=== PATIENT | male | born 1980 | race Caucasian/White ===

== ENCOUNTER 2020-09-11 12:01 | Emergency (ER) | payer OTHER, SELFPAY ==
[2020-09-11 12:15] VITALS: BP 143/100; PULSE 80; RESP 17; TEMP 37.2; O2SAT 96; BMI 29.9
--- NOTE | 2020-09-11 12:30 | XR_ITS ---
EXAMINATION: XR FINGER, RIGHT CLINICAL INFORMATION: Index finger. Question food foreign body COMPARISON: None TECHNIQUE: Three views of the right index finger. FINDINGS: The bones and soft tissues are normal. No fracture. Alignment is anatomic. Joint spaces are maintained. No radiopaque foreign body seen. XR/XR finger RT min 2V IMPRESSION: No radiopaque foreign body seen. No soft tissue gas.
--- NOTE | 2020-09-11 13:13 | ED.GENADULT ---
HPI - General Adult General Chief complaint: General Medical <LULU Lopes - Last Filed: 09/11/20 17:58> Stated complaint: SPLINTER R HAND <LULU Lopes Last Filed: 09/11/20 17:58> Time Seen by Provider: 09/11/20 12:23 <LULU Lopes Last Filed: 09/11/20 17:58> Source: patient <LULU Lopes Last Filed: 09/11/20 17:58> Mode of arrival: ambulatory <LULU Lopes Last Filed: 09/11/20 17:58> History of Present Illness HPI narrative: 39-year-old male presented to ED complaining suspected wood foreign body and right index finger x3 days. Reports was chopping wood the other day and large stick cut through his glove, however when pulled glove off wood broke off. Reports continued pain, and drainage from open skin area today. Denies fever, chills, numbness/tingling <LULU Lopes Last Filed: 09/11/20 17:58> Onset (ago): day(s) <LULU Lopes - Last Filed: 09/11/20 17:58> Location: upper extremity <LULU Lopes Last Filed: 09/11/20 17:58> Related Data Home medications: Previous Rx's Medication Instructions Recorded clindamycin HCl 450 mg PO Q8H 7 Days #32 cap 09/11/20 <LULU Lopes Last Filed: 09/11/20 17:58> Allergies/adverse reactions: Allergies Allergy/AdvReac Type Severity Reaction Status Date / Time amoxicillin [AMOXICILLIN] Allergy Unknown HIVES, rash Verified 09/11/20 16:10 kiwi [KIWI] Allergy Unknown TINGLING Verified 09/11/20 16:10 penicillin G procaine Allergy Unknown rash Verified 09/11/20 16:10 Penicillins [PENICILLINS] Allergy Unknown HIVES Verified 09/11/20 16:10 OYSTERS Allergy Unknown N/V/D Uncoded 07/19/20 16:56 <LULU Lopes Last Filed: 09/11/20 17:58> Review of Systems Review of Systems: Constitutional: No Weight loss, No Fever, No Chills Musculoskeletal: + joint pain, No Myalgias, No Joint Swelling Skin: +Skin Lesions, No rash Neuro: No Weakness, No Numbness, No Paresthesias <LULU Lopes - Last Filed: 09/11/20 17:58> Yes all other systems are reviewed and are negative <LULU Lopes - Last Filed: 09/11/20 17:58> [facility] Past Medical History Attestation statement: The following information was validated with the patient. <LULU Lopes - Last Filed: 09/11/20 17:58> Social History Social History: Social History Advance Directives: No Advance Directives Information Provided: Yes <LULU Lopes - Last Filed: 09/11/20 17:58> Physical Exam Vital Signs: Vital Signs: Last Vital Signs Temp 98.0 F 09/11/20 17:00 Pulse 61 09/11/20 17:00 Resp 17 09/11/20 17:00 BP 133/81 09/11/20 17:00 Pulse Ox 99 09/11/20 17:00 Body Mass Index 29.9 <LULU Lopes - Last Filed: 09/11/20 17:58> Vital Signs: Last Vital Signs Temp 98.0 F 09/11/20 17:00 Pulse 61 09/11/20 17:00 Resp 17 09/11/20 17:00 BP 133/81 09/11/20 17:00 Pulse Ox 99 09/11/20 17:00 Body Mass Index 29.9 <Tyron Carty MD - Last Filed: 09/14/20 02:35> Const: General: cooperative and healthy appearing <LUUL Lopes - Last Filed: 09/11/20 17:58> Orientation/consciousness: patient oriented x3 <LULU Lopes - Last Filed: 09/11/20 17:58> Limitations: no limitations <LULU Lopes - Last Filed: 09/11/20 17:58> HENMT: Head: Yes normal to inspection <LULU Lopes - Last Filed: 09/11/20 17:58> Ears: hearing grossly normal bilaterally <LULU Lopes - Last Filed: 09/11/20 17:58> General nose exam: Normal external nose present <Anne Lara PA - Last Filed: 09/11/20 17:58> Face and sinus: Yes normal facial exam <Anne Lara PA - Last Filed: 09/11/20 17:58> Eyes: General: appearance normal, both eyes and all related structures <Anne Lara PA - Last Filed: 09/11/20 17:58> EOM: EOMs intact bilaterally <Anne Lara PA - Last Filed: 09/11/20 17:58> Neck: Neck: Yes normal visual inspection <Anne Lara PA - Last Filed: 09/11/20 17:58> Skin: Rashes: no rashes <Anne Lara PA - Last Filed: 09/11/20 17:58> Neuro: Other: Right index finger with swelling > distally with open area noted to radial aspect just proximal to DIP with slight expressible drainage. no appreciable defined FB. +ttp <Anne Lara PA - Last Filed: 09/11/20 17:58> General: patient oriented x3 <Anne Lara PA - Last Filed: 09/11/20 17:58> Gait exam (Neuro): Normal gait present <Anne Lara PA - Last Filed: 09/11/20 17:58> Extrem: General: Yes normal to inspection <LULU Lopes - Last Filed: 09/11/20 17:58> Course Course Course Narrative: --x-ray without visible foreign body, but foreign body seen on ultrasound -Dr. Jane, orthopedic surgeon contacted, and will see patient in the ED -Dr. Jane performed bedside removal of foreign body, and recommended patient follow-up in the office in 2 days -patient received dose of IV clindamycin in the ED, Labs were unremarkable <LULU Lopes - Last Filed: 09/11/20 17:58> I have discussed the case and management with the TORIE <Tyorn Carty MD - Last Filed: 09/14/20 02:35> Medical Decision Making Lab Data Result diagrams: : 09/11/20 15:54 09/11/20 15:54 <LULU Lopes - Last Filed: 09/11/20 17:58> Labs: Lab Results 09/11/20 09/11/20 Range/Units 15:54 15:54 WBC 6.6 (4.8-10.8) X10*3/uL RBC 4.97 (4.60-5.80) X10*6/uL Hgb 15.6 (14.0-18.0) g/dl Hct 44.6 (42-52) % MCV 89.7 (80-98) fL MCH 31.4 (27.0-33.0) pg MCHC 35.0 (31.0-36.0) g/dl RDW 11.9 (11.0-16.0) % Plt Count 251 (160-400) X10*3/uL MPV 10.4 (9.4-12.4) fL Immature Gran % (Auto) 0.5 H (0.0-0.4) % Neut % (Auto) 54.2 (45-73) % Lymph % (Auto) 29.9 (20-40) % [place] % (Auto) 11.8 H (2-11) % Eos % (Auto) 2.7 (0-4) % Baso % (Auto) 0.9 (0-2) % Lymph # (Auto) 2.0 (1.2-4.9) X10*3/uL [place] # (Auto) 0.8 (0.1-1.2) X10*3/uL Eos # (Auto) 0.2 (0.0-0.4) X10*3/uL Baso # (Auto) 0.1 (0.0-0.2) X10*3/uL Abs Immat Gran (auto) 0.03 (0.00-0.03) X10*3/uL Absolute Neuts (auto) 3.6 (2.0-8.3) X10*3/uL Absolute Nucleated RBC 0.000 (0.0-0.012) X10*3/uL Nucleated RBC % (auto) 0.0 (0.0-0.2) /100WBC Sodium 140 (135-145) mmol/L Potassium 4.1 (3.3-5.1) mmol/l Chloride 105 (96-108) mmol/L Carbon Dioxide 28 (22-29) mmol/L Anion Gap 11 L (12-20) BUN 18 H (9-16) mg/dL Creatinine 0.78 (0.5-1.4) mg/dL Estim Creat Clear Calc 166.1 Estimated GFR > 60 Random Glucose 84 (60-115) mg/dL Calcium 9.3 (8.4-10.2) mg/dL <LULU Lopes - Last Filed: 09/11/20 17:58> Lab Results 09/11/20 09/11/20 Range/Units 15:54 15:54 WBC 6.6 (4.8-10.8) X10*3/uL RBC 4.97 (4.60-5.80) X10*6/uL Hgb 15.6 (14.0-18.0) g/dl Hct 44.6 (42-52) % MCV 89.7 (80-98) fL MCH 31.4 (27.0-33.0) pg MCHC 35.0 (31.0-36.0) g/dl RDW 11.9 (11.0-16.0) % Plt Count 251 (160-400) X10*3/uL MPV 10.4 (9.4-12.4) fL Immature Gran % (Auto) 0.5 H (0.0-0.4) % Neut % (Auto) 54.2 (45-73) % Lymph % (Auto) 29.9 (20-40) % [place] % (Auto) 11.8 H (2-11) % Eos % (Auto) 2.7 (0-4) % Baso % (Auto) 0.9 (0-2) % Lymph # (Auto) 2.0 (1.2-4.9) X10*3/uL [place] # (Auto) 0.8 (0.1-1.2) X10*3/uL Eos # (Auto) 0.2 (0.0-0.4) X10*3/uL Baso # (Auto) 0.1 (0.0-0.2) X10*3/uL Abs Immat Gran (auto) 0.03 (0.00-0.03) X10*3/uL Absolute Neuts (auto) 3.6 (2.0-8.3) X10*3/uL Absolute Nucleated RBC 0.000 (0.0-0.012) X10*3/uL Nucleated RBC % (auto) 0.0 (0.0-0.2) /100WBC Sodium 140 (135-145) mmol/L Potassium 4.1 (3.3-5.1) mmol/l Chloride 105 (96-108) mmol/L Carbon Dioxide 28 (22-29) mmol/L Anion Gap 11 L (12-20) BUN 18 H (9-16) mg/dL Creatinine 0.78 (0.5-1.4) mg/dL Estim Creat Clear Calc 166.1 Estimated GFR > 60 Random Glucose 84 (60-115) mg/dL Calcium 9.3 (8.4-10.2) mg/dL <Tyron Carty MD - Last Filed: 09/14/20 02:35> Discharge Plan Discharge Clinical Impression: Foreign body of right index finger with infection <LULU Lopes - Last Filed: 09/11/20 17:58> Patient Disposition: Home, Self-Care <LULU Lopes - Last Filed: 09/11/20 17:58> Instructions: Puncture Wound (ED) <LULU Lopes - Last Filed: 09/11/20 17:58> Additional Instructions: YOU NEED TO SEE THE ORTHOPEDIC/HAND SURGEON IN 2 DAYS, CALL THE OFFICE TO MAKE THE APPOINTMENT CLINDAMYCIN ANTIBIOTIC, TAKE PRESCRIBED, YOUR GIVEN HER 1ST DOSE IN THE ED, WHICH MAKES YOU COULD FOR 8 HOURS KEEP HAND/WRAP DRY AND CLEAN, IF HE DEVELOPS FEVER, HAND BECOMES VERY SWOLLEN, RED, OR PAIN IS OUT OF PROPORTION RETURN TO THE ED YOU SHOULD TAKE TYLENOL AND MOTRIN AT HOME FOR PAIN/SWELLING <LULU Lopes - Last Filed: 09/11/20 17:58> Prescriptions: New clindamycin HCl 300 mg capsule 450 mg PO Q8H 7 Days Qty: 32 RF: 0 <LULU Lopes - Last Filed: 09/11/20 17:58> Referrals: Herminia Jane MD [Physician] - 2 days <LULU Lopes - Last Filed: 09/11/20 17:58> Stand Alone Forms: Work/School Release <LULU Lopes - Last Filed: 09/11/20 17:58> Interventions: ED Discharge Assessment Last Done: 09/11/20 17:12 <LULU Lopes - Last Filed: 09/11/20 17:58> Discharge Date/Time: 09/11/20 17:16 <LULU Lopes - Last Filed: 09/11/20 17:58>
--- NOTE | 2020-09-11 15:47 | P.CONOP_ITS ---
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 He was moving some firewood 2 days ago on 09/09/2020 when a piece of wood entered the volar aspect of his right index finger. He woke up this morning and his right index finger had increasing swelling pain and some drainage and came to the emergency department for care. Review of Systems Constitutional: Constitutional: Denies no additional constitutional complaints, Denies chills and Denies fever(s) Musculoskeletal: Musculoskeletal: Reports as per HPI Allergic/Immunologic: Allergic/Immunologic: Reports no additional allergic/immunologic complaints Comments: Allergic to penicillin PMFSH Social History Social History Advance Directives: No Advance Directives Information Provided: Yes Meds Allergies Allergy/AdvReac Type Severity Reaction Status Date / Time amoxicillin [AMOXICILLIN] Allergy Unknown HIVES, rash Unverified 07/19/20 16:56 kiwi [KIWI] Allergy Unknown TINGLING Unverified 07/19/20 16:56 penicillin G procaine Allergy Unknown rash Verified 10/10/19 00:00 Penicillins [PENICILLINS] Allergy Unknown HIVES Unverified 07/19/20 16:56 OYSTERS Allergy Unknown N/V/D Uncoded 07/19/20 16:56 Physical Exam Vital Signs: Vital Signs: Last Vital Signs Temp 99.0 F 09/11/20 12:15 Pulse 80 09/11/20 12:15 Resp 17 09/11/20 12:15 BP 143/100 H 09/11/20 12:15 Pulse Ox 96 09/11/20 12:15 Body Mass Index 29.9 Const: General: cooperative, healthy appearing and no acute distress Orientation/consciousness: oriented to person and oriented to place HENMT: Head: Yes normocephalic and Yes atraumatic Eyes: EOM: EOMs intact bilaterally Resp: Effort & Inspection: normal respiratory effort and able to speak in complete sentences Cardio: Jugular venous distension: no JVD Skin: General skin exam: turgor normal Rashes: no rashes Neuro: General: oriented to person and oriented to place Extrem: Other: Evaluation of Upper Extremity: Neuro: Median, ulnar, radial nerves motor and sensory intact. Vascular: Cap refill brisk. ROM: Skin: General: The patient has a small puncture wound measuring approximately 2 mm in diameter along the radial aspect of the right index finger just proximal to the D IP joint. There is a small amount of serosanguineous drainage. He has swelling particularly in the volar aspect of the right index finger over the middle phalanx. He is most tender in this area, but is also tender over the flexor tendon sheath distal to this. He is not particularly tender palpation over the flexor tendon sheath over the proximal phalanx were proximally. He can actively flex and extend at the MCP and PIP joints without pain. Cap refill is brisk and sensation is intact to the radial and ulnar digital nerve distributions of the digit. Again swelling and erythema is present in the right index finger. Radiographs: None were seen. Psych: Appearance: grossly normal Affect: normal affect Attitude: cooperative Results Labs Labs: All other labs normal. Assessment and Plan (1) Foreign body of right index finger with infection: Status: Acute Procedures Abscess I/D Consent for Procedure: Elective - informed consent obtained Additional comments: Operative Note Narrative: Preop diagnosis: Right index finger foreign body and early infection Postop diagnosis: Same Procedure: 1. Right index finger removal of foreign body 2. Right index finger I&D Surgeon: Herminia Jane MD Anesthesia: Digital block using a mixture plain 1% lidocaine, and some lidocaine with epinephrine Findings: A piece of wood measuring approximately 2 mm in diameter by approximately 1.5 cm in length was removed from the volar aspect index finger at the middle phalanx level. This appeared to be superficial to the flexor tendon sheath.. There was some serosanguineous drainage but no kt purulence. Tourniquet time: None EBL: Minimal Specimen: None Drains: None Complications: None Disposition: Tolerated the procedure well emergency department Plan: IV or IM antibiotics per ED Oral antibiotics for 7-10 days Follow-up in 2 the days in the orthopedic department for wound check. Antic ipate suture removal in about 7 days Indications: The patient is a 39 year old man with right index finger splinter and per orally infection . The risks and benefits of operative treatment, inc luding but not limited to risk of damage to blood vessels, nerves, tendons, infection, recurrence, persistent pain or numbness, incomplete resolution of preoperative symptoms, or need for further surgery were discussed with the patient and they wished to proceed with surgery. Procedure: Once consent was obtained a digital block of the right index finger was performed using a combination of 1% plain lidocaine and some lidocaine with epinephrine. The the right upper extremity was then prepped and draped in the emergency department. Once assured that we had a good block, I made a 1.5 cm oblique incision over the volar aspect of the right index finger at the middle phalanx level including puncture wound. Incision was made through the skin into the subcutaneous tissues using a 15. Blade. And then carefully dissected down to the level of the subcutaneous tissues using some iris scissors. There was some serosanguineous fluid but no kt purulence. I found a wooden foreign body measuring approximately 1.5 cm in length by 2 mm in diameter. This was removed from the subcutaneous tissues. I do not believe that it likely involved flexor tendon sheath. At this point the wound was copiously irrigated with normal saline. Once satisfied with our foreign body removal and I&D and then loosely approximated the skin edges with some 5 0 nylon suture material. A sterile dressing was applied. Patient appears to have tolerated the procedure well with no complications. All digits were well vascularized at the conclusion the case
[2020-09-11 16:01] LABS: MANUAL DIFF FLAG NO
[2020-09-11 16:05] LABS: Basophils Absolute Auto 0.1 X10*3/uL (0.0-0.2); Basophils Percent Auto 0.9 % (0-2); Eosinophils Absolute Auto 0.2 X10*3/uL (0.0-0.4); Eosinophils Percent Auto 2.7 % (0-4); Hematocrit 44.6 % (42-52); Hemoglobin 15.6 g/dl (14.0-18.0); Imm Gran Abs Auto 0.03 X10*3/uL (0.00-0.03); Imm Gran Pct Auto 0.5 % (0.0-0.4); Lymphocytes Percent Auto 29.9 % (20-40); Mean Corpuscular Hemoglobin 31.4 pg (27.0-33.0); Mean Corpuscular Volume 89.7 fL (80-98); Mean Platelet Volume 10.4 fL (9.4-12.4); Monocytes Absolute Auto 0.8 X10*3/uL (0.1-1.2); Monocytes Percent Auto 11.8 % (2-11); Neutrophils Absolute Auto 3.6 X10*3/uL (2.0-8.3); Neutrophils Percent Auto 54.2 % (45-73); Platelet Count 251 X10*3/uL (160-400); Red Blood Count 4.97 X10*6/uL (4.60-5.80); Red Cell Distribution Width 11.9 % (11.0-16.0); White Blood Count 6.6 X10*3/uL (4.8-10.8)
[2020-09-11] MEDS: Clindamycin Phosphate/D5W 600 MG/50 ML PIGGYBACK 100 MG IV (16:17)
[2020-09-11 16:23] LABS: Anion Gap 11 (12-20); Blood Urea Nitrogen 18 mg/dL (9-16); Calcium 9.3 mg/dL (8.4-10.2); Carbon Dioxide 28 mmol/L (22-29); Chloride 105 mmol/L (96-108); Creatinine Clr Calc Pharmacy 166.1; Estimated Glomerular Filt Rate > 60; Glucose Random 84 mg/dL (60-115); Potassium 4.1 mmol/l (3.3-5.1); Sodium 140 mmol/L (135-145)
[2020-09-11 17:00] VITALS: BP 133/81; PULSE 61; RESP 17; TEMP 36.7; O2SAT 99
== END 2020-09-11 17:16 | disposition home or self-care (01) ==
PROVIDERS: Physician Assistant; Emergency Provider Emergency Medicine; PCP Hospitalist
DX: S60.450A Superficial foreign body of right index finger, initial encounter (principal); L08.9 Local infection of the skin and subcutaneous tissue, unspecified; M79.641 Pain in right hand; W45.8XXA Other foreign body or object entering through skin, initial encounter; Y93.9 Activity, unspecified; Y92.9 Unspecified place or not applicable; Y99.9 Unspecified external cause status
CPT/HCPCS: 36415; 73140; 80048; 85025; 96365; 99283; 99284

== ENCOUNTER → 2020-09-17 14:10 | Outpatient (BNVA) | payer OTHER, SELFPAY | PROVIDERS: Visit Provider Orthopaedic Surgery | DX: Z76.89 Persons encountering health services in other specified circumstances (principal) ==

== ENCOUNTER 2023-06-25 11:01 | Emergency (ER) | payer BC, SELFPAY ==
--- NOTE | ~2023-06-25 | XR_ITS ---
EXAMINATION: XR FINGER, RIGHT CLINICAL INFORMATION: Pain. COMPARISON: None available. TECHNIQUE: 3 views of the right 3rd finger. FINDINGS: Soft tissue swelling is seen involving the 3rd proximal interphalangeal joint. No acute fracture or dislocation is evident. Joint spaces are maintained. XR/XR finger RT min 2V IMPRESSION: Soft tissue swelling without evidence of acute bony injury 3rd proximal interphalangeal joint.
[2023-06-25 11:38] VITALS: BP 147/91; PULSE 90; RESP 19; TEMP 36.6; O2SAT 96; BMI 32.8
--- NOTE | 2023-06-25 11:38 | ED.GENADULT ---
HPI - General Adult General Chief complaint: Wound/Laceration Stated complaint: r middle finger infection Time Seen by Provider: 06/25/23 13:37 Source: patient and RN notes reviewed Mode of arrival: ambulatory Limitations: no limitations History of Present Illness HPI narrative: This is a 42-year-old male, with a past medical history of recent skin MRSA infection, presenting to the emergency department with complaints of right 3rd finger redness and swelling x4 days. Patient states that he has noticed increased redness and swelling, worsening today. He is able to bend his right finger without any difficulty. He denies any fevers, chills, chest pain, shortness of breath, abdominal pain, nausea, vomiting, or diarrhea. He states that he was followed by his investigation specialist where he was given clindamycin, states that all other rashes have resolved, reports that they are mostly on his legs. Denies any other complaints or concerns this time. MD complaint: Right 3rd finger redness Onset (ago): day(s) Quality: aching Pain Consistency: constant Relieving factors: none Exacerbating factors: none Associated symptoms: denies other symptoms Treatments prior to arrival: none Related Data Home Medications Medication Instructions Recorded Confirmed clonazepam 0.5 mg tablet 0.5 mg PO TID 11/09/20 fluoxetine 20 mg capsule 20 mg PO DAILY 11/09/20 Previous Rx's Medication Instructions Recorded clindamycin HCl 300 mg capsule 450 mg PO Q8H 7 days #32 caps 09/11/20 azithromycin 250 mg tablet 250 mg PO DAILY 5 days #6 tabs 11/09/20 (Zithromax Z-Gurinder) cephalexin 500 mg capsule 500 mg PO QID 7 days #28 caps 06/25/23 doxycycline hyclate 100 mg capsule 100 mg PO BID 7 days #14 caps 06/25/23 Allergies Allergy/AdvReac Type Severity Reaction Status Date / Time amoxicillin [AMOXICILLIN] Allergy Unknown HIVES, rash Verified 06/25/23 11:38 kiwi [KIWI] Allergy Unknown TINGLING Verified 06/25/23 11:38 penicillin G procaine Allergy Unknown rash Verified 06/25/23 11:38 Penicillins [PENICILLINS] Allergy Unknown HIVES Verified 06/25/23 11:38 OYSTERS Allergy Unknown N/V/D Uncoded 06/25/23 11:38 Review of Systems Review of Systems: Yes all other systems are reviewed and are negative Constitutional: Constitutional: Reports as per HPI [facility] Past Medical History Surgical History (Updated 09/17/20 @ 14:15 by Ally Hoang [facility]) History of cholecystectomy Social History Social History (Updated 11/09/20 @ 16:15 by Sasha Solis [employer]ER[employer]) Alcohol intake: never Current occupation: [employer] - Right Handed Physical Exam ED Vital Signs: Vital Signs - 24 hr 06/25/23 11:38 Temperature 98 F Pulse Rate 90 Respiratory Rate 19 Blood Pressure 147/91 H Pulse Oximetry 96 Oxygen Delivery Method Room Air BMI result Body Mass Index 32.8 Const General: cooperative, comfortable and no acute distress Orientation/consciousness: patient oriented x3 Limitations: no limitations HENMT Head: Yes normal to inspection, Yes normocephalic and Yes atraumatic Ears: hearing grossly normal bilaterally General nose exam: Normal external nose present Face and sinus: Yes normal facial exam Mouth: Normal oral and palatal mucosa present, oropharynx normal and moist mucous membranes Throat: Yes posterior oropharynx normal Eyes General: appearance normal, both eyes and all related structures Eyelids: Yes eyelids normal Conjunctivae: conjunctivae normal Sclerae: sclerae normal Pupils: Equal, round and reactive pupils present EOM: EOMs intact bilaterally Neck Neck: Yes normal visual inspection, Yes full ROM and Yes no lymphadenopathy Lymphatic: no lymphadenopathy noted Chest Chest palpation & inspection: normal inspection of the chest Resp Effort & Inspection: normal respiratory effort and able to speak in complete sentences Auscultation: clear to auscultation bilaterally, no crackles, no rales, no rhonchi and no wheezes Cardio Rate: regular rate Rhythm: regular rhythm Heart sounds: S1 normal heart sound present and S2 normal heart sound present GI Inspection: Yes normal to inspection Skin General skin exam: no rashes or lesions noted Trauma: no lacerations or abrasions Wounds: no wounds Neuro General: patient oriented x3 and moves all extremities Cranial nerves: Yes Equal, round and reactive pupils present Extrem Other: Right middle finger is warm, erythematous and mildly edematous, no erythema or edema noted to the anterior posterior aspect of the hand. Range of motion of the PIP and PIP within normal limits. Radial pulses 2+ General: Yes normal to inspection Right upper extremity: normal to inspection Left upper extremity: normal to inspection Right lower extremity: normal to inspection Left lower extremity: normal to inspection Course Course Course Narrative: RME- 42 year old male presents for evaluation of pain, redness, and swelling to the right 3rd finger PIP joint. Reports having had MRSA 1 month ago. Symptoms worsened last night. Plan for labs, xray Medical Decision Making Medical Decision Making [facility] Narrative: 42-year-old male presenting to the emergency department for evaluation of right 3rd finger redness and swelling x4 days. Patient had recent MRSA infection. Labs revealing no leukocytosis, chemistry within normal limits. Finger x-ray does not show any abnormalities. Given recent MRSA infection, will treat with dual coverage Keflex and doxycycline. Patient reporting hive allergy to penicillins, no known history of cephalosporin allergy. Patient is afebrile, with good range of motion therefore septic joint unlikely. Advised to closely monitor symptoms and to return with any new or worsening symptoms. Patient understands and agrees with plan. Patient stable for discharge. Differential Diagnosis Differential Diagnoses: The differential diagnosis associated with the presentation includes Cellulitis, septic arthritis, gouty arthritis Admission/Observation Consideration of admission/observation: Escalation of care including admission/observation considered Patient would have been admitted to the hospital had his work up had any findings where hospital admission was appropriate and his clinical presentation warranted hospital admission. Lab Data [facility] Lab Attestation statement: I reviewed the patient's lab results. See above 06/25/23 12:53 06/25/23 12:53 Labs: Lab Results 06/25/23 06/25/23 06/25/23 Range/Units 12:53 12:53 12:53 WBC 6.5 (4.8-10.8) X10*3/uL RBC 5.42 (4.60-5.80) X10*6/uL Hgb 16.5 (14.0-18.0) g/dl Hct 48.4 (42.0-52.0) % MCV 89.3 (80.0-98.0) fL MCH 30.4 (27.0-33.0) pg MCHC 34.1 (31.0-36.0) g/dl RDW 12.8 (11.0-16.0) % Plt Count 170 (160-400) X10*3/uL MPV 10.6 (9.4-12.4) fL Immature Gran % (Auto) 0.3 (0.0-0.4) % Neut % (Auto) 57.4 (45-73) % Lymph % (Auto) 27.0 (20-40) % Caswell % (Auto) 14.1 H (2-11) % Eos % (Auto) 0.6 (0-4) % Baso % (Auto) 0.6 (0-2) % Lymph # (Auto) 1.8 (1.2-4.9) X10*3/uL Caswell # (Auto) 0.9 (0.1-1.2) X10*3/uL Eos # (Auto) 0.0 (0.0-0.4) X10*3/uL Baso # (Auto) 0.0 (0.0-0.2) X10*3/uL Abs Immat Gran (auto) 0.02 (0.00-0.03) X10*3/uL Absolute Neuts (auto) 3.7 (2.0-8.3) x10*3/uL Absolute Nucleated RBC 0.000 (0.0-0.012) X10*3/uL Nucleated RBC % (auto) 0.0 (0.0-0.2) /100WBC ESR 13 (0-15) MM/HR Sodium 142 (135-145) mmol/L Potassium 3.8 (3.3-5.1) mmol/L Chloride 106 (96-108) mmol/L Carbon Dioxide 29 (22-29) mmol/L Anion Gap 11 L (12-20) BUN 13 (9-16) mg/dL Creatinine 0.87 (0.5-1.4) mg/dL Estim Creat Clear Calc 150.6 Estimated GFR > 60 Random Glucose 86 (60-115) mg/dL Calcium 9.8 (8.4-10.2) mg/dL Total Bilirubin 0.7 (0.0-1.0) mg/dL AST 36 (5-37) U/L ALT 52 H (0-40) U/L Alkaline Phosphatase 54 (39-117) U/L Total Protein 7.4 (6.5-8.0) g/dL Albumin 4.5 (3.5-5.0) g/dL Radiology Impression Discussion of test interpretation with radiology: I have reviewed the radiologist's reading. Radiologist Impression: EXAMINATION: XR FINGER, RIGHT CLINICAL INFORMATION: Pain.? COMPARISON: None available.? TECHNIQUE: 3 views of the right 3rd finger. FINDINGS: Soft tissue swelling is seen involving the 3rd proximal interphalangeal joint. No acute fracture or dislocation is evident. Joint spaces are maintained.? XR/XR finger RT min 2V IMPRESSION: Soft tissue swelling without evidence of acute bony injury 3rd proximal interphalangeal joint. Dictated By: Oswaldo Muñiz MD Discharge Plan Discharge Clinical Impression: Cellulitis of middle finger Patient Disposition: Home, Self-Care Instructions: Cellulitis (ED) Additional Instructions: Your lab work was reassuring today. Your x-rays did not show any abnormalities. Your finger appears to be infected, please complete both courses of antibiotics as directed. You should follow-up with your investigation specialist regarding this visit. Please keep moving your finger, gentle range of motion is very important. If any new or worsening symptoms occur including but not limited to worsening redness, swelling, decreased range of motion of your finger, please return for re-evaluation. Prescriptions: New doxycycline hyclate 100 mg capsule 100 mg PO BID 7 Days Qty: 14 0RF cephalexin 500 mg capsule 500 mg PO QID 7 Days Qty: 28 0RF No Action clindamycin HCl 300 mg capsule 450 mg PO Q8H 7 Days Qty: 32 0RF azithromycin [Zithromax Z-Gurinder] 250 mg tablet 250 mg PO DAILY 5 Days Qty: 6 0RF
[2023-06-25 13:10] LABS: MANUAL DIFF FLAG NO
[2023-06-25 13:13] LABS: Basophils Percent Auto 0.6 % (0-2); Eosinophils Percent Auto 0.6 % (0-4); Hematocrit 48.4 % (42.0-52.0); Hemoglobin 16.5 g/dl (14.0-18.0); Imm Gran Abs Auto 0.02 X10*3/uL (0.00-0.03); Imm Gran Pct Auto 0.3 % (0.0-0.4); Lymphocytes Absolute Auto 1.8 X10*3/uL (1.2-4.9); Mean Corpuscular HGB Conc 34.1 g/dl (31.0-36.0); Mean Corpuscular Hemoglobin 30.4 pg (27.0-33.0); Mean Corpuscular Volume 89.3 fL (80.0-98.0); Mean Platelet Volume 10.6 fL (9.4-12.4); Monocytes Absolute Auto 0.9 X10*3/uL (0.1-1.2); Monocytes Percent Auto 14.1 % (2-11); Neutrophils Absolute Auto 3.7 x10*3/uL (2.0-8.3); Neutrophils Percent Auto 57.4 % (45-73); Platelet Count 170 X10*3/uL (160-400); Red Blood Count 5.42 X10*6/uL (4.60-5.80); Red Cell Distribution Width 12.8 % (11.0-16.0); White Blood Count 6.5 X10*3/uL (4.8-10.8)
[2023-06-25 13:34] LABS: Alanine Aminotransferase 52 U/L (0-40); Albumin Level 4.5 g/dL (3.5-5.0); Alkaline Phosphatase 54 U/L (39-117); Anion Gap 11 (12-20); Aspartate Amino Transferase 36 U/L (5-37); Bilirubin Total 0.7 mg/dL (0.0-1.0); Blood Urea Nitrogen 13 mg/dL (9-16); Calcium 9.8 mg/dL (8.4-10.2); Carbon Dioxide 29 mmol/L (22-29); Chloride 106 mmol/L (96-108); Creatinine Clr Calc Pharmacy 150.6; Estimated Glomerular Filt Rate > 60; Glucose Random 86 mg/dL (60-115); Potassium 3.8 mmol/L (3.3-5.1); Sodium 142 mmol/L (135-145); Total Protein 7.4 g/dL (6.5-8.0)
[2023-06-25 13:52] LABS: Erythrocyte Sedimentation Rate 13 MM/HR (0-15)
[2023-06-25 14:43] VITALS: BP 146/93; PULSE 79; RESP 18; O2SAT 97
== END 2023-06-25 14:49 | disposition home or self-care (01) ==
PROVIDERS: Physician Assistant; Emergency Provider Emergency Medicine; PCP Hospitalist
DX: L03.011 Cellulitis of right finger (principal); M79.644 Pain in right finger(s); Z86.14 Personal history of Methicillin resistant Staphylococcus aureus infection
CPT/HCPCS: 36415; 73140; 80053; 85025; 85652; 99283; 99284

== ENCOUNTER 2024-04-25 13:23 | Emergency (ER) | payer BC, SELFPAY ==
[2024-04-25 13:57] VITALS: BP 188/122; PULSE 73; RESP 18; TEMP 36.2; O2SAT 97; BMI 33.2
== END 2024-04-25 18:27 | disposition left against medical advice (07) ==
PROVIDERS: Emergency Provider Emergency Medicine; PCP Hospitalist
DX: M54.50 Low back pain, unspecified (principal)
CPT/HCPCS: 99281

== ENCOUNTER 2024-08-11 08:21 | Outpatient (AMB) | payer OTHER, BC, SELFPAY ==
--- NOTE | 2024-08-11 08:24 | A.OFFVIS_ITS ---
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 Angela Esquivel for a workers comp related injury for lower back. DOI: 04/25/2024. Patient reports he was picking up a 40 lb case of milk at work when he hurt a pop resulting in immediate numbness after. He expresses he is having continuous pain throughout his day. Lifting, squatting, kneeling, prolonged walking, ambulation of stairs, and certain ways he lays have became difficult due to his symptoms. He has tried naproxen, Tylenol and ibuprofen and these provided mild temporary relief. He says he has completed 8 sessions of physical therapy and they did not do much for relief. Denies any previous treatment or injury of his back. 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 Denies any previous back issues or injuries. Pain has been getting worse. Right sided, can go to left side or down right leg/ankle. Numbness in same distribution, in the beginning the right foot was numb. He had noted positive slump sit but does not think he has foot drop. No bladder/bowel changes. Treatment done so far: tylenol, NSAIDs PT 8 sessions No imaging since injury. Has been off work since injury, under FMLA and WC. [facility] Surgical History History of cholecystectomy Social History Alcohol intake: never Patient Tobacco Use Status: Never used Tobacco Current occupational status: employed Current occupation: [employer] - Right Handed Review of Systems Const All systems reviewed & are unremarkable except as noted in HPI and below Physical Exam Vital Signs: BMI result Body Mass Index 33.7 Constitutional: Patient appears to be in no acute distress, well nourished and well developed. Patient was appropriately conversant and oriented. Good historian. MSK: No specific abnormalities found on inspection of the spine and all extremities. Tender right lower paraspinals lumbar and right SI joint. Lumbar ROM was full. Bilateral hip, knee and ankle ROM WNL. No ligamentous laxity or crepitance. No increased effusion. Straight-leg raising test positive right, positive right slump sit with ?shaking ?of right foot. FABERE test positive right. Give-way weakness in right knee extension and hip flexion due to pain, 4/5. Neurological: Reflexes appeared symmetric. Weak on right knee extension and hip flexion 4/5. Sher?s negative bilaterally. Babinski was down going bilaterally. Ankle clonus was positive bilateral? Gait is antalgic without loss of balance. Difficulty getting up from supine without help. Results Reviewed Results Reviewed: No imaging done so far I reviewed records from the following: [facility] Assessment & Plan Assessment & Plan (1) Acute lumbar radiculopathy: Code(s): M54.16 - Radiculopathy, lumbar region Category: Medical (2) Lumbar disc herniation: Code(s): M51.26 - Other intervertebral disc displacement, lumbar region Category: Medical Plan Acute onset right-sided lower back pain after lifting at work. Concern for disc herniation. Concerned that there is mild clonus on both ankles. Patient has not had any imaging at all. Doing lumbar x-rays today in the office. Ultimately needs a lumbar MRI to evaluate for disc herniation right L5-S1 to explain his symptoms/exam findings. We will also help us with prognosis and treatment plan. MRI order placed. We will start patient on gabapentin 100 mg q.h.s.. Discussed side effects/precautions. Patient to call in 2 weeks to let me know how he is doing with the gabapentin, and perhaps we can adjust the dose upwards if needed. Patient already had a short burst of prednisone at onset of injury. Continue meloxicam. Continue physical therapy. Out of work until MRI obtained or until next visit in 4 weeks. Discussed expectations and possible treatment plan if we find disc herniation on MRI. Assessment and plan discussed with patient, and patient was agreeable. All questions were answered thoroughly. Follow up 4 weeks. Tyra Ann MD, SINDHU Board Certified, [place] [employer] and Rehabilitation (ABPMR) Board Certified, [place] Board [employer] Electrodiagnostic [employer] (ABEM) Orders: Orders MR lumbar spine wo con Today M51.26 - Other intervertebral disc displacement, lumbar region, M54.16 - Radiculopathy, lumbar region XR lumbar spine 2-3V Today M51.26 - Other intervertebral disc displacement, lumbar region, M54.16 - Radiculopathy, lumbar region, M54.9 - Dorsalgia, unspecified Medications: New gabapentin 100 mg PO BEDTIME 30 caps 1RF Coding Level of Care Code New Pt Level 4 (40048) Diagnoses Acute lumbar radiculopathy M54.16 Lumbar disc herniation M51.26
[2024-08-11 08:26] VITALS: BMI 33.7
== END 2024-08-11 09:03 | disposition home or self-care (01) ==
PROVIDERS: PCP Hospitalist; Visit Provider Physical Medicine & Rehabilitation
DX: M54.16 Radiculopathy, lumbar region (principal); M51.26 Other intervertebral disc displacement, lumbar region
CPT/HCPCS: 99204

== ENCOUNTER 2024-08-11 08:21 | Outpatient (REF) | payer OTHER, BC, SELFPAY ==
--- NOTE | ~2024-08-11 | XR_ITS ---
EXAMINATION: XR LUMBOSACRAL SPINE CLINICAL INFORMATION: Back pain. COMPARISON: None available. TECHNIQUE: Three views of the lumbosacral spine. FINDINGS: Normal vertebral body alignment. The lumbar lordosis is maintained. No acute fracture or subluxation. No loss of vertebral body height. Minimal loss of intervertebral disc height with tiny endplate osteophytes at L5-S1. No concerning lytic or blastic osseous lesion. No abnormal soft tissue calcification. Right upper quadrant surgical clips. XR/XR lumbar spine 2-3V IMPRESSION: Minimal degenerative disc disease at L5-S1. Electronically signed by: Shahzad Shelton MD 09/14/2024 10:07 AM [facility] [place]
== END 2024-08-11 08:22 | disposition home or self-care (01) ==
LOC: HO.HOSX 08:21
PROVIDERS: PCP Hospitalist; Visit Provider Physical Medicine & Rehabilitation
DX: M54.9 Dorsalgia, unspecified (principal); M51.26 Other intervertebral disc displacement, lumbar region; M54.16 Radiculopathy, lumbar region
CPT/HCPCS: 72100; 99202

== ENCOUNTER 2024-09-07 18:07 | Outpatient (REF) | payer OTHER, BC, SELFPAY ==
--- NOTE | ~2024-09-07 | MR_ITS ---
EXAMINATION: MR LUMBAR SPINE WITHOUT CONTRAST CLINICAL INFORMATION: Radiculopathy, lumbar region COMPARISON: None available. TECHNIQUE: MRI of the lumbar spine was obtained using routine sequences without contrast. FINDINGS: There are 5 nonrib-bearing lumbar-type vertebrae. Straightening of the normal lumbar lordosis. No listhesis. No acute bone marrow abnormality. Diffusely heterogeneous bone marrow signal is likely degenerative. The vertebral body heights are preserved. Multilevel disc desiccation with mild to moderate disc height loss at L2-3. Type II endplate changes at L2-3. Multilevel endplate osteophytosis. The visualized spinal cord is normal in caliber. No abnormal cord signal. The conus medullaris terminates at L1. T12/L1: No significant spinal canal nor foraminal narrowing. L1-2: No significant spinal canal or neural foraminal narrowing. L2-3: Shallow disc bulge and bilateral facet arthrosis. Prominent dorsal epidural fat. No significant spinal canal or neural foraminal narrowing. L3-4: Prominent dorsal epidural fat. Mild right greater than left neural foraminal narrowing with the disc abutting the exiting L2 nerve roots bilaterally. No significant spinal canal stenosis L4-5: Bilateral facet arthrosis. Mild right greater than left neural foraminal narrowing with the disc abutting the exiting L4 nerve roots bilaterally. No significant spinal canal stenosis. L5-S1: Prominent epidural fat near completely effaces the thecal sac. No significant neural foraminal narrowing. The paravertebral soft tissues are unremarkable. Right renal cyst. MR/MR lumbar spine wo con IMPRESSION: 1. Multilevel lumbar spondylosis without significant spinal canal stenosis. There is mild right greater than left neural foraminal narrowing at L3-L4 and L4-L5 with the disc abutting the exiting L2 and L4 nerve roots bilaterally. 2. Epidural lipomatosis at L5-S1 near completely effaces the thecal sac. Electronically signed by: Di Silva MD 09/07/2024 09:42 PM [facility]
== END 2024-09-07 18:08 | disposition home or self-care (01) ==
LOC: HO.MRI 18:07
PROVIDERS: PCP Hospitalist; Visit Provider Physical Medicine & Rehabilitation
DX: M54.16 Radiculopathy, lumbar region (principal); M51.26 Other intervertebral disc displacement, lumbar region
CPT/HCPCS: 72148

== ENCOUNTER 2024-09-08 08:30 | Outpatient (AMB) | payer OTHER, BC, SELFPAY ==
--- NOTE | 2024-09-08 08:33 | A.OFFVIS_ITS ---
Vital Signs 09/08/24 08:35 Height 6 ft 3 in Weight 270 lb BMI 33.7 Intake Visit Reasons: OV-lower back pain-4 WK follow up Intake Note: Gabe is a 43 year old male who presents today for a follow up of his low back pain. Patient reports his back pain has not improved. He says his pain is constant throughout the day. He did 8 session of PT but they stopped it due to him needing an MRI. He does not feel like PT helped his symptoms. He has been taking acetaminophen and gabapentin and finds mild relief. Denies numbness and tingling. Lumbar MRI done on 09/07/2024. 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 Denies any previous back issues or injuries. Pain has been getting worse. Right sided, can go to left side or down right leg/ankle. Numbness in same distribution, in the beginning the right foot was numb. He had noted positive slump sit but does not think he has foot drop. No bladder/bowel changes. PT on hold until MRI results. He has done total of 8 sessions. Pain worse, right sided, lower back, non radicular. Once in a while, shooting pain on right side. No numbness. No weakness, no falls. [facility] Surgical History History of cholecystectomy Social History Alcohol intake: never Patient Tobacco Use Status: Never used Tobacco Current occupational status: employed Current occupation: [employer] - Right Handed Physical Exam Vital Signs: BMI result Body Mass Index 33.7 Constitutional: Patient appears to be in no acute distress, well nourished and well developed. Patient was appropriately conversant and oriented. Good historian. MSK: No specific abnormalities found on inspection of the spine and all extremities. Has no tenderness over spinous processes or facets or paraspinals. Tender on the right quadratus lumborum area. Lumbar ROM was full. Bilateral hip, knee and ankle ROM WNL. No ligamentous laxity or crepitance. No increased effusion. Positive right slump sit. FABERE test positive right. Strength improved today. 5/5. Neurological: Reflexes appeared symmetric. Babinski was down going bilaterally. Ankle clonus was positive 1-2 beats? Gait is antalgic without loss of balance. Results Reviewed Results Reviewed: Ordering Physician: Tyra Sosa Date of Service: 09/07/24 Procedure(s): MR lumbar spine wo con Accession Number(s): [id number] cc: Bj Esquivel MD; Tyra Sosa~ EXAMINATION: MR LUMBAR SPINE WITHOUT CONTRAST CLINICAL INFORMATION: Radiculopathy, lumbar region COMPARISON: None available. TECHNIQUE: MRI of the lumbar spine was obtained using routine sequences without contrast. FINDINGS: There are 5 nonrib-bearing lumbar-type vertebrae. Straightening of the normal lumbar lordosis. No listhesis. No acute bone marrow abnormality. Diffusely heterogeneous bone marrow signal is likely degenerative. The vertebral body heights are preserved. Multilevel disc desiccation with mild to moderate disc height loss at L2-3. Type II endplate changes at L2-3. Multilevel endplate osteophytosis. The visualized spinal cord is normal in caliber. No abnormal cord signal. The conus medullaris terminates at L1. T12/L1: No significant spinal canal nor foraminal narrowing. L1-2: No significant spinal canal or neural foraminal narrowing. L2-3: Shallow disc bulge and bilateral facet arthrosis. Prominent dorsal epidural fat. No significant spinal canal or neural foraminal narrowing. L3-4: Prominent dorsal epidural fat. Mild right greater than left neural foraminal narrowing with the disc abutting the exiting L2 nerve roots bilaterally. No significant spinal canal stenosis L4-5: Bilateral facet arthrosis. Mild right greater than left neural foraminal narrowing with the disc abutting the exiting L4 nerve roots bilaterally. No significant spinal canal stenosis. L5-S1: Prominent epidural fat near completely effaces the thecal sac. No significant neural foraminal narrowing. The paravertebral soft tissues are unremarkable. Right renal cyst. MR/MR lumbar spine wo con IMPRESSION: 1. Multilevel lumbar spondylosis without significant spinal canal stenosis. There is mild right greater than left neural foraminal narrowing at L3-L4 and L4-L5 with the disc abutting the exiting L2 and L4 nerve roots bilaterally. 2. Epidural lipomatosis at L5-S1 near completely effaces the thecal sac. Electronically signed by: Di Silva MD 09/07/2024 09:42 PM [facility] Assessment & Plan Assessment & Plan (1) Acute lumbar radiculopathy: Code(s): M54.16 - Radiculopathy, lumbar region Category: Medical (2) Lumbar disc herniation: Code(s): M51.26 - Other intervertebral disc displacement, lumbar region Category: Medical (3) Lumbar strain: Code(s): S39.012A - Strain of muscle, fascia and tendon of lower back, initial encounter Category: Medical Qualifiers: Encounter type: initial encounter Qualified Code(s): S39.012A - Strain of muscle, fascia and tendon of lower back, initial encounter Plan We looked at MRI images together. Most notable disc desiccation at L2-3 with some foraminal stenosis but no significant central stenosis. Patient has undergone conservative management including physical therapy without adequate relief. We discussed possibility of lumbar epidural injection. Patient eager to proceed. Referring patient for pain management. Continue physical therapy. Referral order renewed. Also work on right quadratus lumborum muscles. Work note given, continue out of work status for maybe another 4 weeks or until seen by pain management. Assessment and plan discussed with patient, and patient was agreeable. All questions were answered thoroughly. Tyra Ann MD, SINDHU Board Certified, [place] Board [employer] and Rehabilitation (ABPMR) Board Certified, [place] Board of Electrodiagnostic Medicine (ABEM) Orders: Orders PT Evaluation and Treatment Today M51.26 - Other intervertebral disc displacement, lumbar region, M54.16 - Radiculopathy, lumbar region, S39.012A - Strain of muscle, fascia and tendon of lower back, initial encounter Referrals Pain Management Referral M51.26 - Other intervertebral disc displacement, lumbar region, M54.16 - Radiculopathy, lumbar region, S39.012A - Strain of muscle, fascia and tendon of lower back, initial encounter Coding Level of Care Code Est Pt Level 4 (22708) Diagnoses Acute lumbar radiculopathy M54.16 Lumbar disc herniation M51.26 Strain of lumbar region, initial encounter S39.012A Encounter type: initial encounter
[2024-09-08 08:35] VITALS: BMI 33.7
== END 2024-09-08 09:09 | disposition home or self-care (01) ==
LOC: HO.HOS 08:31
PROVIDERS: PCP Hospitalist; Visit Provider Physical Medicine & Rehabilitation
DX: M54.16 Radiculopathy, lumbar region (principal); M51.26 Other intervertebral disc displacement, lumbar region; S39.012A Strain of muscle, fascia and tendon of lower back, initial encounter
CPT/HCPCS: 99213

== ENCOUNTER → 2024-09-08 08:30 | Outpatient (BNVA) | payer OTHER, BC, SELFPAY | PROVIDERS: PCP Hospitalist; Visit Provider Physical Medicine & Rehabilitation | DX: M54.16 Radiculopathy, lumbar region (principal); M51.26 Other intervertebral disc displacement, lumbar region; S39.012A Strain of muscle, fascia and tendon of lower back, initial encounter | CPT/HCPCS: 99212 ==

== ENCOUNTER 2024-10-04 12:51 | Outpatient (AMB) | payer OTHER, BC, SELFPAY ==
--- NOTE | 2024-10-04 13:02 | MHC.OFFVIS ---
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 Accompanied by: Spouse Allergies amoxicillin [AMOXICILLIN] Allergy (Unknown, Verified 10/04/24 13:09) HIVES, rash kiwi [KIWI] Allergy (Unknown, Verified 10/04/24 13:09) TINGLING penicillin G procaine Allergy (Unknown, Verified 10/04/24 13:09) rash Penicillins [PENICILLINS] Allergy (Unknown, Verified 10/04/24 13:09) HIVES OYSTERS Allergy (Unknown, Uncoded 09/08/24 08:36) N/V/D Medication List - Last Reconciled 10/04/24 by Asha Chan, [employer] acetaminophen ER 1,300 mg PO BID PRN clonazepam 0.5 mg PO TID gabapentin 100 mg PO BEDTIME meloxicam 15 mg PO DAILY sertraline mg PO HPI HPI Intervertebral Disc Displacement: Details: Patient is a 43 years old male presents today for evaluation of right sided lumbar radiculopathy and discussion for potential epidural steroid injection. This is a Worker?s Comp Case claim #[id number]. DOI: 04/25/24. 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 Pain is predominantly discogenic and radicular with significant increase in his symptoms with bending, twisting, flexing forward as well as prolonged walking or standing, lifting, pulling or squatting. Pain radiates into his right lower back and buttock and into the posterior leg and thigh and into his ankle. He is currently active with physical therapy and completed 8 sessions so far with minimal improvement. Pain affects his daily activities and functioning, mobility, mood, sleep, work, social interactions and quality of life. Patient also has been managing pain with Tylenol, NSAIDs and gabapentin with partial benefit. Denies previous spine surgery or injections or previous injury to his back. Patient has completed lumbar x-ray and MRI as noted below and was referred to our office by [facility] Physiatry for potential L2-L3 ALBERTINA. Patient has been off work since injury. Denies any fever or chills, abdominal or groin pain, foot drop, bladder or bowel dysfunction or saddle anesthesia. Reports intermittent right lower extremity weakness with pain.? Patient reports eczema rash in his trunk, upper and lower extremities with appearance of dry, scaly and raised various sizes of patches without redness, blistering or drainage.? Oswestry Low Back Disability Score=25 (severe disability) Location: Right lower back Duration: 6 months Characteristics of symptom or complaint: tightness, sharp Aggravating or associated factors: Lfting, twisting or bending to the right, walking, standing Relieving factors: Sitting, acetaminophen, NSAIDs Treatment: gabapentin, acetaminophen, meloxicam, PT PFSH Medical History (Updated 10/04/24 @ 21:54 by KT Morales) Foreign body of right index finger with infection (~09/09/20) ASOM (acute suppurative otitis media) Surgical History History of cholecystectomy Social History Alcohol intake: never Patient Tobacco Use Status: Never used Tobacco Current occupational status: employed Current occupation: [employer] - Right Handed Review of Systems Const All systems reviewed & are unremarkable except as noted in HPI and below Physical Exam Vital Signs: Last Vital Signs Pulse 86 10/04/24 13:09 BP 140/95 H 10/04/24 13:09 Pulse Ox 97 10/04/24 13:09 BMI result Body Mass Index 34.1 General: Appears afebrile. Alert and oriented. Mood and affect appropriate. Follows and participates in conversation appropriately. Respiratory effort is unlabored. No cough. Able to transition from sit to stand unassisted. Ambulates with bilateral normal heel strike and toe off, with pain increase on the right with toe standing. General: Yes no CVA tenderness Back/Spine/Pelvis Other: Limited lumbar ROM due to pain. Mildly antalgic gait. No limping. Can flex forward to 65-70 degrees and extend to 10-15 degrees before experiencing lumbar pain, worse pain with bending and flexion forward and right lateral bending and twisting. Demonstrates 5/5 left and 4/5 right strength of quadriceps bilaterally as well as flexion/dorsiflexion of bilateral feet against resistance. 2+ pedal pulses bilaterally. Straight leg rise with dorsiflexion positive on the right. +2 patellar and achilles reflexes bilaterally. Facet loading test positive bilaterally. Krunal sign is positive bilaterally, Max?s and Stinchfield tests are positive on the right. No groin pain with I/E hip rotations. Valsalva maneuver is positive. Back: no CVA tenderness Cervical Spine: cervical ROM normal, cervical muscular tenderness and No Cervical spine tenderness Thoracic/Lumbar Spine: thoracic and lumbar spine normal to inspection, No Thoracic/lumbar spine scar(s), Lasegue's sign positive on the right and localized, pain with thoraco-lumbar ROM, paraspinal muscle tenderness on the right in the mid lumbar and in the lower lumbar, No thoracic spinal tenderness and lumbar spinal tenderness at L3, at L4 and at L5 Pelvis: buttock tenderness on the right Sacroiliac joints: bilaterally Skin General skin exam: dry skin (eczema noted to trunk, upper and lower extremities) Extrem General: Yes capillary refill normal, Yes no clubbing, cyanosis or edema and Yes no calf tenderness Results Reviewed Results Reviewed: MR LUMBAR SPINE WITHOUT CONTRAST 09/07/24 CLINICAL INFORMATION: Radiculopathy, lumbar region COMPARISON: None available. TECHNIQUE: MRI of the lumbar spine was obtained using routine sequences without contrast. FINDINGS: There are 5 nonrib-bearing lumbar-type vertebrae. Straightening of the normal lumbar lordosis. No listhesis. No acute bone marrow abnormality. Diffusely heterogeneous bone marrow signal is likely degenerative. The vertebral body heights are preserved. Multilevel disc desiccation with mild to moderate disc height loss at L2-3. Type II endplate changes at L2-3. Multilevel endplate osteophytosis. The visualized spinal cord is normal in caliber. No abnormal cord signal. The conus medullaris terminates at L1. T12/L1: No significant spinal canal nor foraminal narrowing. L1-2: No significant spinal canal or neural foraminal narrowing. L2-3: Shallow disc bulge and bilateral facet arthrosis. Prominent dorsal epidural fat. No significant spinal canal or neural foraminal narrowing. L3-4: Prominent dorsal epidural fat. Mild right greater than left neural foraminal narrowing with the disc abutting the exiting L2 nerve roots bilaterally. No significant spinal canal stenosis L4-5: Bilateral facet arthrosis. Mild right greater than left neural foraminal narrowing with the disc abutting the exiting L4 nerve roots bilaterally. No significant spinal canal stenosis. L5-S1: Prominent epidural fat near completely effaces the thecal sac. No significant neural foraminal narrowing. The paravertebral soft tissues are unremarkable. Right renal cyst. IMPRESSION: 1. Multilevel lumbar spondylosis without significant spinal canal stenosis. There is mild right greater than left neural foraminal narrowing at L3-L4 and L4-L5 with the disc abutting the exiting L2 and L4 nerve roots bilaterally. 2. Epidural lipomatosis at L5-S1 near completely effaces the thecal sac. XR LUMBOSACRAL SPINE 08/11/24 CLINICAL INFORMATION: Back pain. COMPARISON: None available. TECHNIQUE: Three views of the lumbosacral spine. FINDINGS: Normal vertebral body alignment. The lumbar lordosis is maintained. No acute fracture or subluxation. No loss of vertebral body height. Minimal loss of intervertebral disc height with tiny endplate osteophytes at L5-S1. No concerning lytic or blastic osseous lesion. No abnormal soft tissue calcification. Right upper quadrant surgical clips. IMPRESSION: Minimal degenerative disc disease at L5-S1. Assessment & Plan Assessment & Plan (1) Lumbar disc herniation: Code(s): M51.26 - Other intervertebral disc displacement, lumbar region Category: Medical (2) Lumbar strain: Code(s): S39.012A - Strain of muscle, fascia and tendon of lower back, initial encounter Category: Medical Qualifiers: Encounter type: initial encounter Qualified Code(s): S39.012A - Strain of muscle, fascia and tendon of lower back, initial encounter (3) Muscle spasm of back: Code(s): M62.830 - Muscle spasm of back Category: Medical (4) Low back pain radiating to right leg: Code(s): M54.50 - Low back pain, unspecified; M79.604 - Pain in right leg Category: Medical (5) Vertebrogenic low back pain: Code(s): M54.51 - Vertebrogenic low back pain Category: Medical Plan Schedule Right L2-L3 Interlaminar Parasagittal ALBERTINA with local and fluoroscopy. Expectations, risks and benefits were reviewed. Patient is aware he will be contacted to schedule this procedure. Script provided for TENS unit via Zynex an adjunct therapy with the goal of reduce pain, inflammation and muscle spasms. All questions were answered and the patient is in agreement of plan. Follow-up after injection and sooner as needed. Coding Level of Care Code New Pt Level 4 (54302) Complex EM visit Add On G2211 Diagnoses Lumbar disc herniation M51.26 Strain of lumbar region, initial encounter S39.012A Encounter type: initial encounter Muscle spasm of back M62.830 Low back pain radiating to right leg M54.50; M79.604 Vertebrogenic low back pain M54.51
[2024-10-04 13:09] VITALS: BP 140/95; PULSE 86; O2SAT 97; BMI 34.1
== END 2024-10-04 13:52 | disposition home or self-care (01) ==
PROVIDERS: PCP Hospitalist; Referring Provider Physical Medicine & Rehabilitation; Visit Provider Nurse Practitioner Family
DX: M51.26 Other intervertebral disc displacement, lumbar region (principal); S39.012A Strain of muscle, fascia and tendon of lower back, initial encounter; M62.830 Muscle spasm of back; M79.604 Pain in right leg; M54.51 Vertebrogenic low back pain
CPT/HCPCS: 99204; G2211

== ENCOUNTER → 2024-10-04 12:51 | Outpatient (BNVA) | payer OTHER, BC, SELFPAY | PROVIDERS: PCP Hospitalist; Referring Provider Physical Medicine & Rehabilitation; Visit Provider Nurse Practitioner Family | DX: S39.012A Strain of muscle, fascia and tendon of lower back, initial encounter (principal); M62.830 Muscle spasm of back; M79.604 Pain in right leg; M54.51 Vertebrogenic low back pain; X58.XXXA Exposure to other specified factors, initial encounter; Y93.9 Activity, unspecified; Y92.89 Other specified places as the place of occurrence of the external cause; Y99.9 Unspecified external cause status | CPT/HCPCS: 99202 ==

== ENCOUNTER 2024-10-25 10:00 | Outpatient (RCR) | payer OTHER, BC, SELFPAY ==
--- NOTE | 2024-09-20 07:44 | MHC.PT.EP ---
[facility] [place] Office [place] Office [place] Office [address] Emily Carpenter [address] [phone] F: [phone] F: [phone] F: [phone] F: [phone] Physical Therapy Plan of Care Date of Evaluation: 09/20/24 Date of Surgery: Diagnosis: Acute lumbar radiculopathy Assessment: Patient is a 43 year old R handed male who presents with s/s consistent with acute lumbar radiculopathy, low back pain. Injury occurred while lifting a 40 pound crate of milk. 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 Patient past medical history is unremarkable. Current impairments include pain, posture, ROM, flexibility, strength, activity tolerance and functional mobility. Functional limitations include decreased ability to bend, walk, transfer, lift, push, pull and work. Patient is motivated with good rehab potential. Skilled PT will address impairments and functional limitations in order to achieve goals. Frequency and Duration: The patient will be seen 2x/week for 5 weeks Short Term Goals: I with HEP - 2 weeks s/s centralized - 3 weeks Max pain 3/10 with daily activities - 3 weeks [facility] Goals: Safe return to work - 5 weeks Oswestry 10% or less - 5 weeks Max pain with ADLs - 5 weeks 90/90 lacking 30 or less - 5 weeks AROM rotation 75% and pain free - 5 weeks Treatment Plan: Modalities to reduce pain, spasms and effusion. Manual therapy to restore motion and function. Therapeutic exercise to improve strength and flexibility. Neuromuscular re-education for posture and balance. Therapeutic activities to return to functional activities of daily living. Electronically signed by: Radames Medrano, PT Please sign and return to therapist. Thank you for your referral.
--- NOTE | 2025-01-20 08:13 | MHC.PT.DC ---
[facility] [place] Office [place] Office [place] [facility] [address] Emily Carpenter [address] [phone] F: [phone] F: [phone] F: [phone] F: [phone] Physical Therapy Discharge Report Diagnosis: Acute lumbar radiculopathy Date of Surgery: Date of Evaluation: 09/20/24 Date of Discharge: 11/01/24 Treatments to Date: 8 Cancellations to Date: No Shows to Date: Discharge Status: Independent with HEP Patient Elected to Stop Recommend MD Follow-up Discharge Summary: 10/25/24: pt with no sustained progress thus far. schedule for shot on and 1 more PT appt. We will likely hold at that point due to lack of progress barring change of status. 10/21/24: continued with same program back to . good carryover and reduced soreness overall from patient at end of treatments. responding well to IFC. 10/20/24: reduced s/s today so we received prior program with IFC. good response today. continue to progress as tolerated. min s/s to finish. 10/13/24: held progression and resistance ex today due to increased s/s reportedly from sleep. attempt to progress Nv. 10/10/24: pt progressing well with skilled PT. reduced s/s and progressing strength intervention. continue to progress as tolerated. 10/06/24: pt progressing well with improved activity tolerance today. we were able to progress nicely. continue to progress as tolerated. 09/28/24: pt progressing well. however, episodes at home and had him in pain for his two follow ups so we have been hesitant to progress. 09/22/24: good day followed by irritable day today. we cautiously added ROM and comfort today. attempt to progress Nv. 09/20: Patient is a 43 year old R handed male who presents with s/s consistent with acute lumbar radiculopathy, low back pain. Injury occurred while lifting a 40 pound crate of milk. 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 Patient past medical history is unremarkable. Current impairments include pain, posture, ROM, flexibility, strength, activity tolerance and functional mobility. Functional limitations include decreased ability to bend, walk, transfer, lift, push, pull and work. Patient is motivated with good rehab potential. Skilled PT will address impairments and functional limitations in order to achieve goals. Electronically signed by: Radames Medrano, PT Please sign and return to therapist. Thank you for your referral.
== END 2025-01-20 08:13 | disposition home or self-care (01) ==
LOC: HO.PTCHIC 10:00
PROVIDERS: PCP Hospitalist; Visit Provider Physical Medicine & Rehabilitation
DX: S39.012A Strain of muscle, fascia and tendon of lower back, initial encounter (principal); M51.26 Other intervertebral disc displacement, lumbar region; M54.16 Radiculopathy, lumbar region
CPT/HCPCS: 97014; 97110; 97161

== ENCOUNTER 2024-10-27 06:35 | Outpatient (REF) | payer OTHER, BC, SELFPAY | END 2024-10-27 06:36 | disposition home or self-care (01) | LOC: CF 06:35 | PROVIDERS: Visit Provider Internal Medicine | DX: M54.16 Radiculopathy, lumbar region (principal) | CPT/HCPCS: 62323; J2003; J3301; Q9967 ==

== ENCOUNTER 2024-10-27 10:21 | Outpatient (AMB) | payer OTHER, BC, SELFPAY ==
--- NOTE | 2024-10-27 10:26 | MHC.OFFVIS ---
Vital Signs 10/27/24 10:27 10/27/24 11:11 BP 149/97 H 144/96 H Blood Pressure Location Lt brachial Lt brachial Position Sitting Sitting Pulse 74 70 Pulse Source Pulse Oximeter Pulse Oximeter Pulse Oximetry (%) 97 98 Oxygen Delivery Method Room Air Room Air Intake Visit Reasons: right L2-L3 interlaminar parasagittal ALBERTINA Allergies amoxicillin [AMOXICILLIN] Allergy (Unknown, Verified 10/04/24 13:09) HIVES, rash kiwi [KIWI] Allergy (Unknown, Verified 10/04/24 13:09) TINGLING penicillin G procaine Allergy (Unknown, Verified 10/04/24 13:09) rash Penicillins [PENICILLINS] Allergy (Unknown, Verified 10/04/24 13:09) HIVES OYSTERS Allergy (Unknown, Uncoded 09/08/24 08:36) N/V/D HPI HPI right L2-L3 interlaminar parasagittal ALBERTINA: Details: Patient presents for scheduled procedure. Denies any recent cough, cold, infection, fever or other significant changes in medical history since last office visit. ON LICENSE OF [facility] Medical History (Updated 10/04/24 @ 21:54 by KT Morales) Foreign body of right index finger with infection (~09/09/20) ASOM (acute suppurative otitis media) Surgical History History of cholecystectomy Social History Alcohol intake: never Patient Tobacco Use Status: Never used Tobacco Current occupational status: employed Current occupation: [employer] - Right Handed Physical Exam Vital Signs: Last Vital Signs Pulse 70 10/27/24 11:11 BP 144/96 H 10/27/24 11:11 Pulse Ox 98 10/27/24 11:11 Oxygen Delivery Method Room Air 10/27/24 11:11 Office Procedures AMB Joint Injection/Aspiration Joint Injection/Aspiration Details: Interlaminar epidural steroid injection, L2/3, right parasaggital After obtaining written consent, pre-procedure blood pressure and heart rate were stable and recorded in the nursing record. The patient was placed in the prone position. The lumbar area was widely prepped with chloraprep and draped in sterile fashion. Fluoroscopic guidance was used to identify the desired interlaminar space and for needle placement. Subcutaneous 0.5% lidocaine was used to anesthetize the skin overlying the target. A 20-gauge Willard needle was advanced to the epidural space using loss of resistance to contrast technique under fluoroscopic AP and contralateral oblique views. There was no evidence of heme or CSF and no paresthesias were elicited with needle placement. Confirmation of epidural needle placement was performed with 1cc of omnipaque 180. Next 3 ml 0.5% lidocaine mixed with 80 mg triamcinilone was administered epidurally with no pain elicited on injection. The needle tract tubing was then cleared with 1 ml of 0.5% lidocaine. The needle was removed, skin cleansed and a sterile bandage was applied. The patient tolerated the procedure well and no complications were encountered. Following the procedure the patient's vital signs were stable. The patient was discharged home in good condition with post-procedural instructions. Time Out: Immediately prior to the procedure, the following was verbally confirmed that there is a signed consent form and that the correct patient, planned procedure, site and side are consistent with documentation and that necessary equipment and/or blood products are available prior to the start of the case. Complications: none EBL: <2 cc Coding 35420 - Caudal/Lumbar Epidural/Interlaminar with fluoroscopy Procedure code (CPT) selection complete Assessment & Plan Assessment & Plan (1) Acute lumbar radiculopathy: Code(s): M54.16 - Radiculopathy, lumbar region Category: Medical Plan Patient is status post right parasagittal interlaminar L2-3 ALBERTINA. Patient tolerated procedure well and was discharged home in stable condition with discharge instructions. All questions were answered. We will follow-up via telephone or in clinic to assess response to therapy. A follow-up appointment was made during today's visit. Orders: Orders FL guidance in treatment room Today M54.16 - Radiculopathy, lumbar region Coding Level of Care Code Procedure Only Diagnoses Acute lumbar radiculopathy M54.16 CPT Codes Coding - Joint 11: 71707 - Caudal/Lumbar Epidural/Interlaminar with fluoroscopy ([id number])
[2024-10-27 10:27] VITALS: BP 149/97; PULSE 74; O2SAT 97
[2024-10-27 11:11] VITALS: BP 144/96; PULSE 70; O2SAT 98
== END 2024-10-27 11:12 | disposition home or self-care (01) ==
PROVIDERS: PCP Hospitalist; Visit Provider Internal Medicine
DX: M54.16 Radiculopathy, lumbar region (principal)
CPT/HCPCS: 62323

== ENCOUNTER 2024-11-24 10:53 | Outpatient (AMB) | payer OTHER, BC, SELFPAY ==
--- NOTE | 2024-11-24 10:56 | MHC.OFFVIS ---
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 Acosta. Patient reports about 50% pain relief for less than 2 weeks with partial improvement in his daily activities and functioning, mobility and sleep. Pain is worse with bending down or twisting, walkng or lifting. Pain is rated at 7/10. We will proceed with Neurosurgical evaluation given his temporary and partial relief with recent therapeutic ALBERTINA. Patient requests updated refill script for TENS unit via [employer]. Denies any recent cough, cold, infection, fever or other significant changes in medical history since last office visit. Past Procedures: 10/27/24: Right L2-L3 interlaminar parasagittal ALBERTINA-50% pain relief for <2 weeks PRIOR: Patient is a 43 years old male presents today for evaluation of right sided lumbar radiculopathy and discussion for potential epidural steroid injection. This is a Worker?s Comp Case claim #[id number]. DOI: 04/25/24. 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 Pain is predominantly discogenic and radicular with significant increase in his symptoms with bending, twisting, flexing forward as well as prolonged walking or standing, lifting, pulling or squatting. Pain radiates into his right lower back and buttock and into the posterior leg and thigh and into his ankle. He is currently active with physical therapy and completed 8 sessions so far with minimal improvement. Pain affects his daily activities and functioning, mobility, mood, sleep, work, social interactions and quality of life. Patient also has been managing pain with Tylenol, NSAIDs and gabapentin with partial benefit. Denies previous spine surgery or injections or previous injury to his back. Patient has completed lumbar x-ray and MRI as noted below and was referred to our office by [facility] [place] for potential L2-L3 ALBERTINA. Patient has been off work since injury. Denies any fever or chills, abdominal or groin pain, foot drop, bladder or bowel dysfunction or saddle anesthesia. Reports intermittent right lower extremity weakness with pain. Patient reports eczema rash in his trunk, upper and lower extremities with appearance of dry, scaly and raised various sizes of patches without redness, blistering or drainage. Oswestry Low Back Disability Score=25 (severe disability) Location: Right lower back Duration: 6 months Characteristics of symptom or complaint: tightness, sharp Aggravating or associated factors: Lfting, twisting or bending to the right, walking, standing Relieving factors: Sitting, acetaminophen, NSAIDs Treatment: gabapentin, acetaminophen, meloxicam, PT PFSH Medical History Foreign body of right index finger with infection (~09/09/20) ASOM (acute suppurative otitis media) Surgical History History of cholecystectomy Social History Alcohol intake: never Patient Tobacco Use Status: Never used Tobacco Current occupational status: employed Current occupation: [employer] - Right Handed Review of Systems Const All systems reviewed & are unremarkable except as noted in HPI and below Physical Exam Vital Signs: Last Vital Signs Pulse 84 11/24/24 10:59 BP 136/90 H 11/24/24 10:59 BMI result Body Mass Index 34.1 General: Appears afebrile. No acute distress. Alert and oriented. Mood and affect appropriate. Follows and participates in conversation appropriately. Respiratory effort is unlabored. No cough. Able to transition from sit to stand unassisted. Ambulates with bilateral normal heel strike and toe off, with pain increase on the right with toe standing. General: Yes no CVA tenderness Back/Spine/Pelvis Other: Limited lumbar ROM due to pain. Mildly antalgic gait. No limping. Can flex forward to 65-70 degrees and extend to 5-10 degrees before experiencing lumbar pain, worse pain with bending and flexion forward and right lateral bending and twisting. Demonstrates 5/5 left and 4/5 right strength of quadriceps bilaterally as well as flexion/dorsiflexion of bilateral feet against resistance. 2+ pedal pulses bilaterally. Straight leg rise with dorsiflexion positive on the right. +2 patellar and achilles reflexes bilaterally. Facet loading test positive bilaterally. Krunal sign is positive bilaterally, Max?s and Stinchfield tests are positive on the right. No groin pain with I/E hip rotations. Valsalva maneuver is negative. Back: no CVA tenderness Cervical Spine: cervical ROM normal, cervical muscular tenderness and No Cervical spine tenderness Thoracic/Lumbar Spine: thoracic and lumbar spine normal to inspection, No Thoracic/lumbar spine scar(s), Lasegue's sign positive on the right, diffuse and localized, pain with thoraco-lumbar ROM, paraspinal muscle tenderness on the right in the mid lumbar and in the lower lumbar, thoraco-lumbar ROM limited, No thoracic spinal tenderness and lumbar spinal tenderness at L3, at L4 and at L5 Pelvis: buttock tenderness on the right Sacroiliac joints: bilaterally (right>left) tender to palpation Extrem General: Yes capillary refill normal, Yes no clubbing, cyanosis or edema and Yes no calf tenderness Results Reviewed Results Reviewed: MR LUMBAR SPINE WITHOUT CONTRAST 09/07/24 CLINICAL INFORMATION: Radiculopathy, lumbar region COMPARISON: None available. TECHNIQUE: MRI of the lumbar spine was obtained using routine sequences without contrast. FINDINGS: There are 5 nonrib-bearing lumbar-type vertebrae. Straightening of the normal lumbar lordosis. No listhesis. No acute bone marrow abnormality. Diffusely heterogeneous bone marrow signal is likely degenerative. The vertebral body heights are preserved. Multilevel disc desiccation with mild to moderate disc height loss at L2-3. Type II endplate changes at L2-3. Multilevel endplate osteophytosis. The visualized spinal cord is normal in caliber. No abnormal cord signal. The conus medullaris terminates at L1. T12/L1: No significant spinal canal nor foraminal narrowing. L1-2: No significant spinal canal or neural foraminal narrowing. L2-3: Shallow disc bulge and bilateral facet arthrosis. Prominent dorsal epidural fat. No significant spinal canal or neural foraminal narrowing. L3-4: Prominent dorsal epidural fat. Mild right greater than left neural foraminal narrowing with the disc abutting the exiting L2 nerve roots bilaterally. No significant spinal canal stenosis L4-5: Bilateral facet arthrosis. Mild right greater than left neural foraminal narrowing with the disc abutting the exiting L4 nerve roots bilaterally. No significant spinal canal stenosis. L5-S1: Prominent epidural fat near completely effaces the thecal sac. No significant neural foraminal narrowing. The paravertebral soft tissues are unremarkable. Right renal cyst. IMPRESSION: 1. Multilevel lumbar spondylosis without significant spinal canal stenosis. There is mild right greater than left neural foraminal narrowing at L3-L4 and L4-L5 with the disc abutting the exiting L2 and L4 nerve roots bilaterally. 2. Epidural lipomatosis at L5-S1 near completely effaces the thecal sac. XR LUMBOSACRAL SPINE 08/11/24 CLINICAL INFORMATION: Back pain. COMPARISON: None available. TECHNIQUE: Three views of the lumbosacral spine. FINDINGS: Normal vertebral body alignment. The lumbar lordosis is maintained. No acute fracture or subluxation. No loss of vertebral body height. Minimal loss of intervertebral disc height with tiny endplate osteophytes at L5-S1. No concerning lytic or blastic osseous lesion. No abnormal soft tissue calcification. Right upper quadrant surgical clips. IMPRESSION: Minimal degenerative disc disease at L5-S1. Assessment & Plan Assessment & Plan (1) Lumbar disc herniation: Code(s): M51.26 - Other intervertebral disc displacement, lumbar region Category: Medical (2) Lumbar strain: Code(s): S39.012A - Strain of muscle, fascia and tendon of lower back, initial encounter Category: Medical Qualifiers: Encounter type: initial encounter Qualified Code(s): S39.012A - Strain of muscle, fascia and tendon of lower back, initial encounter (3) Muscle spasm of back: Code(s): M62.830 - Muscle spasm of back Category: Medical (4) Low back pain radiating to right leg: Code(s): M54.50 - Low back pain, unspecified; M79.604 - Pain in right leg Category: Medical (5) Vertebrogenic low back pain: Code(s): M54.51 - Vertebrogenic low back pain Category: Medical (6) Acute lumbar radiculopathy: Code(s): M54.16 - Radiculopathy, lumbar region Category: Medical Plan Patient is one month status post Right L2-L3 Interlaminar Parasagittal ALBERTINA with temporary and partial relief in his ADLs, mobility and sleep. We will proceed with Neurosurgery evaluation with Dr. Hernandez. Back pain has been resistant to conservative and interventional treatments. Script resubmitted for TENS unit via [employer] an adjunct therapy with the goal of reduce pain, inflammation and muscle spasms. Refill provided for gabapentin per patient's request. Reports good tolerance with benefit and no side effects. All questions were answered and the patient is in agreement of plan. Follow-up after Neurosurgical evaluation and sooner as needed. Orders: Referrals Neurosurgery Referral M51.26 - Other intervertebral disc displacement, lumbar region, M54.50 - Low back pain, unspecified, M79.604 - Pain in right leg Medications: Refilled gabapentin 100 mg PO BEDTIME 30 caps 3RF Coding Level of Care Code Est Pt Level 4 (64574) Complex EM visit Add On G2211 Diagnoses Lumbar disc herniation M51.26 Strain of lumbar region, initial encounter S39.012A Encounter type: initial encounter Muscle spasm of back M62.830 Low back pain radiating to right leg M54.50; M79.604 Vertebrogenic low back pain M54.51 Acute lumbar radiculopathy M54.16
[2024-11-24 10:59] VITALS: BP 136/90; PULSE 84; BMI 34.1
== END 2024-11-24 11:12 | disposition home or self-care (01) ==
PROVIDERS: PCP Hospitalist; Visit Provider Nurse Practitioner Family
DX: M51.26 Other intervertebral disc displacement, lumbar region (principal); S39.012A Strain of muscle, fascia and tendon of lower back, initial encounter; M62.830 Muscle spasm of back; M79.604 Pain in right leg; M54.51 Vertebrogenic low back pain; M54.16 Radiculopathy, lumbar region
CPT/HCPCS: 99214; G2211

== ENCOUNTER → 2024-11-24 10:53 | Outpatient (BNVA) | payer OTHER, BC, SELFPAY | PROVIDERS: PCP Hospitalist; Visit Provider Nurse Practitioner Family | DX: M51.26 Other intervertebral disc displacement, lumbar region (principal); S39.012A Strain of muscle, fascia and tendon of lower back, initial encounter; M62.830 Muscle spasm of back; M79.604 Pain in right leg; M54.51 Vertebrogenic low back pain; M54.16 Radiculopathy, lumbar region; Z98.890 Other specified postprocedural states | CPT/HCPCS: 99212 ==

== ENCOUNTER 2024-12-30 14:33 | Outpatient (AMB) | payer OTHER, BC, SELFPAY ==
--- NOTE | 2024-12-30 14:34 | A.OFFVIS_ITS ---
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 Small on 12/23/24. He continues to endorse persistent low back pain with radiculopathy down the right leg. Pain is increased with walking, forward bending and flexion or prolonged sitting. He also reports middle back pain with changing positions, movements and sleep. Patient continues to manage his symptoms with activity modifications, NSAIDs, Tylenol, gabapentin and heat therapy. He uses TENS unit with partial benefit. Recent lumbar ALBERTINA injection provided him with temporary and partial pain relief. Patient was deemed non-surgical at [facility] but was offered diagnostic discogram and Intracept for discogenic low back pain. Patient reports he was referred to [facility] by [facility] but prefers to continue interventional treatments through our office. Denies any recent cough, cold, infection, fever or other significant changes in medical history since last office visit. Past Procedures: 10/27/24: Right L2-L3 interlaminar parasagittal ALBERTINA-50% pain relief for <2 weeks PRIOR: Patient is a 43 years old male presents today for evaluation of right sided lumbar radiculopathy and discussion for potential epidural steroid injection. This is a Worker?s Comp Case claim #[id number]. DOI: 04/25/24. 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 Pain is predominantly discogenic and radicular with significant increase in his symptoms with bending, twisting, flexing forward as well as prolonged walking or standing, lifting, pulling or squatting. Pain radiates into his right lower back and buttock and into the posterior leg and thigh and into his ankle. He is currently active with physical therapy and completed 8 sessions so far with minimal improvement. Pain affects his daily activities and functioning, mobility, mood, sleep, work, social interactions and quality of life. Patient also has been managing pain with Tylenol, NSAIDs and gabapentin with partial benefit. Denies previous spine surgery or injections or previous injury to his back. Patient has completed lumbar x-ray and MRI as noted below and was [place] to our [place] [facility] [place] potential L2-L3 ALBERTINA. Patient has been off work since injury. Denies any fever or chills, abdominal or groin pain, foot drop, bladder or bowel dysfunction or saddle anesthesia. Reports intermittent right lower extremity weakness with pain. Patient reports eczema rash in his trunk, upper and lower extremities with appearance of dry, scaly and raised various sizes of patches without redness, blistering or drainage. Oswestry Low Back Disability Score=25 (severe disability) Location: Right lower back Duration: 6 months Characteristics of symptom or complaint: tightness, sharp Aggravating or associated factors: Lfting, twisting or bending to the right, w alking, standing Relieving factors: Sitting, acetaminophen, NSAIDs Treatment: gabapentin, acetaminophen, meloxicam, PT PFSH Medical History Foreign body of right index finger with infection (~09/09/20) ASOM (acute suppurative otitis media) Surgical History History of cholecystectomy Social History Alcohol intake: never Patient Tobacco Use Status: Never used Tobacco Current occupational status: employed Current occupation: [employer] - Right Handed Review of Systems Const All systems reviewed & are unremarkable except as noted in HPI and below Physical Exam Vital Signs: Last Vital Signs Pulse 68 12/30/24 14:37 BP 142/98 H 12/30/24 14:37 BMI result Body Mass Index 34.1 General: Appears afebrile. Alert and oriented. Mood and affect appropriate. Follows and participates in conversation appropriately. Respiratory effort is unlabored. No cough. Able to transition from sit to stand unassisted. Ambulates with bilateral normal heel strike and toe off. General: Yes no CVA tenderness Back/Spine/Pelvis Other: Limited lumbar ROM due to pain. Normal gait, no limping. Can flex forward to 60- 65 degrees and extend to 10-15 degrees before experiencing lumbar pain, worse pain with bending and flexion forward and right lateral bending and twisting. Demonstrates 5/5 strength of quadriceps bilaterally as well as flexion/dorsiflexion of bilateral feet against resistance. 2+ pedal pulses bilaterally. Straight leg rise with dorsiflexion positive on the right. +2 patellar and achilles reflexes bilaterally. Facet loading test positive bilaterally. Krunal sign is positive bilaterally, Max?s and Stinchfield tests are positive on the right. No groin pain with I/E hip rotations. Valsalva maneuver is negative. No clonus. Back: no CVA tenderness Cervical Spine: cervical ROM normal, cervical muscular tenderness and No Cervical spine tenderness Thoracic/Lumbar Spine: thoracic and lumbar spine normal to inspection, No Thoracic/lumbar spine scar(s), Lasegue's sign positive on the right and localized, pain with thoraco-lumbar ROM, paraspinal muscle tenderness on the right in the mid lumbar and in the lower lumbar, thoraco-lumbar ROM limited, No thoracic spinal tenderness and lumbar spinal tenderness at L3, at L4 and at L5 Pelvis: buttock tenderness on the right Sacroiliac joints: on the right tender to palpation and on the left nontender Extrem General: Yes capillary refill normal, Yes no clubbing, cyanosis or edema and Yes no calf tenderness Results Reviewed Results Reviewed: MR LUMBAR SPINE WITHOUT CONTRAST 09/07/24 CLINICAL INFORMATION: Radiculopathy, lumbar region COMPARISON: None available. TECHNIQUE: MRI of the lumbar spine was obtained using routine sequences without contrast. FINDINGS: There are 5 nonrib-bearing lumbar-type vertebrae. Straightening of the normal lumbar lordosis. No listhesis. No acute bone marrow abnormality. Diffusely heterogeneous bone marrow signal is likely degenerative. The vertebral body heights are preserved. Multilevel disc desiccation with mild to moderate disc height loss at L2-3. Type II endplate changes at L2-3. Multilevel endplate osteophytosis. The visualized spinal cord is normal in caliber. No abnormal cord signal. The conus medullaris terminates at L1. T12/L1: No significant spinal canal nor foraminal narrowing. L1-2: No significant spinal canal or neural foraminal narrowing. L2-3: Shallow disc bulge and bilateral facet arthrosis. Prominent dorsal epidural fat. No significant spinal canal or neural foraminal narrowing. L3-4: Prominent dorsal epidural fat. Mild right greater than left neural foraminal narrowing with the disc abutting the exiting L2 nerve roots bilaterally. No significant spinal canal stenosis L4-5: Bilateral facet arthrosis. Mild right greater than left neural foraminal narrowing with the disc abutting the exiting L4 nerve roots bilaterally. No significant spinal canal stenosis. L5-S1: Prominent epidural fat near completely effaces the thecal sac. No significant neural foraminal narrowing. The paravertebral soft tissues are unremarkable. Right renal cyst. IMPRESSION: 1. Multilevel lumbar spondylosis without significant spinal canal stenosis. There is mild right greater than left neural foraminal narrowing at L3-L4 and L4-L5 with the disc abutting the exiting L2 and L4 nerve roots bilaterally. 2. Epidural lipomatosis at L5-S1 near completely effaces the thecal sac. XR LUMBOSACRAL SPINE 08/11/24 CLINICAL INFORMATION: Back pain. COMPARISON: None available. TECHNIQUE: Three views of the lumbosacral spine. FINDINGS: Normal vertebral body alignment. The lumbar lordosis is maintained. No acute fracture or subluxation. No loss of vertebral body height. Minimal loss of intervertebral disc height with tiny endplate osteophytes at L5-S1. No concerning lytic or blastic osseous lesion. No abnormal soft tissue calcification. Right upper quadrant surgical clips. IMPRESSION: Minimal degenerative disc disease at L5-S1. Assessment & Plan Assessment & Plan (1) Muscle spasm of back: Code(s): M62.830 - Muscle spasm of back Category: Medical (2) Low back pain radiating to right leg: Code(s): M54.50 - Low back pain, unspecified; M79.604 - Pain in right leg Category: Medical (3) Vertebrogenic low back pain: Code(s): M54.51 - Vertebrogenic low back pain Category: Medical (4) Work related injury: Code(s): Y99.0 - Civilian activity done for income or pay Category: Medical (5) Lumbar degenerative disc disease: Code(s): M51.369 - Other intervertebral disc degeneration, lumbar region without mention of lumbar back pain or lower extremity pain Category: Medical Plan For his low back pain with multilevel degenerative changes on the endplates with Modic changes, most pronounces at L2-L3, he is a good candidate for Intracept procedure. We had extensive discussion about BVN ablation (Intracept) procedure vs. diagnostic discogram vs spinal cord stimulation. Back pain with continued symptoms with minimal improvement from physical therapy and HEP, Tylenol, naproxen, gabapentin, TENS unit, and interlaminar ALBERTINA at L2-L3. We reviewed MRI imaging with patient again today. He prefers with Intracept procedure as next steps. Schedule L2, L3, L4, and L5 BVN ablation with sedation and fluoroscopy. Expectations, risks and benefits were reviewed. Patient is aware he will be contacted to schedule this procedure. All questions and concerns have been answered and patient agreed with the treatments plan. Follow up after Intracept and sooner as needed. Justification for interventional therapy: ? Patient with average pain > 6/10 ? Patient has exhausted conservative therapy . Modic changes noted on MRI exam with positive physical exam findings with forward and lateral loading The risks, consequences, alternatives, and benefits of various treatment options were discussed with the patient in great detail, including conservative management, injections and procedures. Coding Level of Care Code Est Pt Level 4 (05881) Complex EM visit Add On G2211 Diagnoses Muscle spasm of back M62.830 Low back pain radiating to right leg M54.50; M79.604 Vertebrogenic low back pain M54.51 Work related injury Y99.0 Lumbar degenerative disc disease M51.369
[2024-12-30 14:37] VITALS: BP 142/98; PULSE 68; BMI 34.1
--- OUTSIDE RECORDS SUMMARY | 2024-12-30 16:43 | XMS_ITS ---
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 Generated for Printi irais/Fabrittanyg/eTransmitting on:?12/30/2024 04:43 PM EST
--- OUTSIDE RECORDS SUMMARY | 2024-12-30 16:43 | XMS_ITS ---
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 Generated for Printi ng/Fabrittanyg/eTransmitting on:?12/30/2024 04:42 PM EST
--- OUTSIDE RECORDS SUMMARY | 2024-12-30 16:43 | XMS_ITS ---
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 Generated for Printi irais/Fabrittanyg/eTransmitting on:?12/30/2024 04:43 PM EST
--- OUTSIDE RECORDS SUMMARY | 2024-12-30 16:43 | XMS_ITS | Patient Health Record ---
Author Organization [facility] Address [address] [facility] [address] [place] [address] Care Team Providers Care Family Specialist Name Role Phone DIMPLE DAVIS Primary Care Provider Laisha Howell Unavailable [phone] Allergies Allergen (clinical drug ingredient) Drug/Non Drug Allergy documented on EMR Reaction Allergy Type Onset Date Status amoxicillin Amoxicillin Unknown Drug Allergy Act yumiko penicillamine Penicillamine Unknown Drug Allergy Active Results Component Value Reference Range Notes [id number] Reviewed date:02/03/2024 08:30:04 AM Interpretation: Performing Lab:[facility], [address] [facility], Phone - [phone], Director - MDElvadry Notes/Report: TSH 1.010 0.450-4.500 uIU/mL Vitamin D, 33-[id number] Reviewed date:02/03/2024 02:16:02 PM Interpretation: Performing Lab:[facility] [place], [address] [facility], Phone - [phone], Director - MDJodry Notes/Report: Vitamin D, 25-Hydroxy 17.9 30.0-100.0 ng/mL Vitamin D deficiency has been defined by the [place] [employer] and an Endocrine Society practice guideline as a level of serum 25-OH vitamin D less than 20 ng/mL (1,2). The Endocrine Society went on to further define vitamin D insufficiency as a level between 21 and 29 ng/mL (2). 1. IOM ([place] [employer]). 2010. Dietary reference intakes for calcium and D. [place]: The National Academies Press. 2. Bryon MF, Sarah GARCIA, Sandra GUERRIER, et al. Evaluation, treatment, and prevention of vitamin D deficiency: an Endocrine Society clinical practice guideline. JCEM. 2010; 96(7):1911-30. Lipid Panel-[id number] Reviewed date:02/03/2024 02:15:48 PM Interpretation: Performing Lab:[facility] [place], [address] [facility], [place], Phone - [phone], Director - Nitish Notes/Report: Cholesterol, Total 191 100-199 mg/dL Triglycerides 138 0-149 mg/dL HDL Cholesterol 48 >39 mg/dL VLDL Cholesterol Jack 25 5-40 mg/dL LDL Chol Calc ([facility]) 118 0-99 mg/dL Comp. Metabolic Panel (14)-3 Reviewed date:02/03/2024 08:30:48 AM Interpretation: Performing Lab:[facility] [place], [address] [facility], [place], Phone - [phone], Director - Nitish Notes/Report: Glucose 96 70-99 mg/dL BUN 16 6-24 mg/dL Creatinine 0.87 0.76-1.27 mg/dL eGFR 108 >59 mL/min/1.73 BUN/Creatinine Ratio 18 9-20 Sodium 143 134-144 mmol/L Potassium 4.4 3.5-5.2 mmol/L Chloride 105 96-106 mmol/L Carbon Dioxide, Total 23 20-29 mmol/L Calcium 9.5 8.7-10.2 mg/dL Protein, Total 6.8 6.0-8.5 g/dL Albumin 4.6 4.1-5.1 g/dL Globulin, Total 2.2 1.5-4.5 g/dL A/G Ratio 2.1 1.2-2.2 Bilirubin, Total 0.5 0.0-1.2 mg/dL Alkaline Phosphatase 62 44-121 IU/L AST (SGOT) 32 0-40 IU/L ALT (SGPT) 39 0-44 IU/L Reason For Referral Reason colonoscopy- BAYSTAT E Diagnosis 1 Encounter for screen ing for malignant neoplasm of colon (Z12.11) Referral Organization [facility] Referring Provider First Name MUSA Referring Provider Last Name GU Referring Provider Speciality Internal M edicine Referred Provider Specialty Gastroentero logy General Notes Referral faxed to Gustavo Branch at F: [phone], Caren Barth 02/03/2024 01:18:39 PM > Referral Priority Routine Reason Evaluation and manag ement Diagnosis 1 Dorsalgia, unspecifi ed (M54.9) Referral Organization [facility] Referring Provider First Name MUSA Referring Provider Last Name GU Referring Provider Speciality Internal edicine Referred Provider Specialty Physical The rapist General Notes [facility] will call patient for scheduling.Batsheva Latraya 05/16/2024 01:29:05 PM > Referral Priority Routine Reason Please evaluate and treat Diagnosis 1 Unspecified injury o f lower back, initial encounter (S39.92XA) Referral Organization [facility] Referring Provider First Name MUSA Referring Provider Last Name [facility] Referring Provider Speciality Internal edicine Referred Provider Specialty Orthopedic S urgery General Notes Referral faxed to [facility]. Please contact pt to schedule an appt.KaisereyKezia 06/30/2024 11:18:52 AM > Referral Priority Routine Reason Evaluation and manag ement Diagnosis 1 Unspecified injury o f lower back, initial encounter (S39.92XA) Referral Organization [facility] Referring Provider First Name DIMPLE Referring Provider Last Name [facility] Referring Provider Speciality Internal edicine Referred Provider Specialty Orthopedic S urgery General Notes Referral sent to [facility] - Office will call patient for scheduling.Batsheva Latraya 07/22/2024 03:27:34 PM > Referral Priority Routine Medications Medication SIG (Take, Route, Fr equency, Duration) Notes Start Date End Date Status Meclizine HCl 25 MG 1 tablet as needed O rally Three Times Daily for 30 day(s) 05/13/2018 Active KlonoPIN 0.5 MG Take 1-2 tablets anila ly as needed Orally Once a day Psych Active Acetaminophen ER 650 MG TAKE 2 TABLETS B Y MOUTH TWICE A DAY NEEDED FOR 30 DAYS for 30 Active Meloxicam 15 MG TAKE 1 TABLET BY ALIYAH TH EVERY DAY FOR 30 DAYS for 30 Active Sertraline HCl 25 MG 1 tablet Orally Once a day Active Social History Tobacco Use: Social History Observation Description Date Details (start date - stop date) Former Smoker NA - NA Tobacco Use/Smoking Question Answer Notes Are you a former smoker How long has it been since you last smoked? > 10 years Alcohol Screen (Audit-C) Question Answer Notes Did you have a drink contain ing alcohol in the past year? Yes How often did you have a dri nk containing alcohol in the past year? 2 to 4 times a month (2 points) How many drinks did you have on a typical day when you were drinking in the past year? 1 or 2 drinks (0 point) How often did you have 6 or more drinks on one occasion in the past year? Never (0 point) Points 2 Interpretation Negative Problems Problem Type SNOMED Code ICD Code Onset Dates Problem Status W/U Status Risk Notes Problem Anxiety disorder (858414243) Anxiety disorder, unspecified (F41.9) Active confirmed Problem Degeneration of thoracolumbar intervertebral disc (32160874) Other intervertebral disc degeneration, thoracolumbar region (M51.35) Active confirmed Problem Left side sciatica (739439073893793) Sciatica, left side (M54.32) Active confirmed Problem Body mass index 30+ - obesity (343137509) Body mass index [BMI]30.0-30.9, adult (Z68.30) Active confirmed Problem Body mass index 30.00 to 34.99 (559690236347813) Body mass index [BMI] 33.0-33.9, adult (Z68.33) Active confirmed Vital Signs Heart Rate 77 /min 08/01/2024 Temperature 98.7 degrees Fahrenheit 08/01/2024 Blood pressure diastolic 90 mm Hg 08/01/2024 Oximetry 96 % 08/01/2024 Height 74.76 in 08/01/2024 Blood pressure systolic 138 mm Hg 08/01/2024 Weight 274.9 lbs 08/01/2024 BMI 34.58 kg/m2 08/01/2024 Encounters Encounter Location Date Provider Diagnosis [address] [place] [address] 06/01/2024 DIMPLE DAVIS [address] [place] [address] 01/20/2024 DIMPLE DAVIS Encounter for genera l adult medical examination without abnormal findings Z00.00 and Anxiety disorder, unspecified F41.[address] [place] [address] 05/11/2024 MUSA GUL Strain of muscle, fascia and tendon of lower back, initial encounter S39.012A [facility] [address] [facility] [address] [place] [address] 06/07/2024 Ghadevidya Alejandreloum Unspecified injury o f lower back, initial encounter S39.92XA [facility] [address] [facility] [address] [place] [address] 07/18/2024 MUSA GUL Other intervertebral disc degeneration, thoracolumbar region M51.35 [facility] [address] [facility] [address] [place] [address] 08/01/2024 MUSA GUL Other intervertebral disc degeneration, thoracolumbar region M51.35 and Sciatica, left side M54.32 [facility] [address] [facility] [address] [place] [address] 04/27/2024 [facility] [address] [facility] [address] [facility] [address] [place] [address] 05/18/2024 [facility] [address] [facility] [address] [place] [address] 06/29/2024 [facility] [address] [facility] [address] [place] [address] 07/22/2024 [facility] [address] [facility] [address] [place] [address] 08/12/2024 [facility] [address] [facility] [address] [place] [address] 04/27/2024 [facility] [address] [facility] [address] [place] [address] 05/16/2024 [facility] [address] [facility] [address] [place] [address] 05/16/2024 [facility] [address] [facility] [address] [place] [address] 06/07/2024 [facility] [address] [facility] [address] [place] [address] 06/30/[address] [place] [address] 07/08/[address] [place] [address] 08/04/[address] [place] [address] 08/26/2024 [facility] Assessments Encounter Date Diagnosis (ICD Code) Assessment Notes Treatment Notes Treatment Clinical Notes Section Notes 01/20/2024 Encounter for general adult medical examination without abnormal findings (ICD-10 - Z00.00) Mr. Aguiar is a 43 year old gentleman with history of anxiety disorder and he sees psychiatrist here for annual physical. Plan is as follows: Anxiety disorder. Mood stable on current regimen and he sees psychiatrist. Class 1 obesity. He lost 9 lbs since last visit. Advised dietary restrictions and regular exercise. Goal is to lose 4-6 lbs a month. Colon cancer screening. Referred to GI for colonoscopy. Immunizations. He completed his COVID-19 and influenza vaccines. Screening BW before next appointment. Screening blood work before next appointment. General health concerns discussed with patient. General health concerns discussed with patient. Scribe services used to formulate this note under HIPAA compliance and under [place] law mandated for scribe services. Patient aware of service. Verbal consent and written consent taken from the patient. Patient understands and verbalizes understanding of the scribes services and all questions answered regarding scribes services. Patient agrees to use of scribes services. 05/11/2024 Strain of muscle, fascia and tendon of lower back, initial encounter (ICD-10 - S39.012A) Mr. Aguiar is a 43 year old gentleman with history of anxiety disorder and he sees psychiatrist here complaining of back pain. Plan is as follows: Back pain. Advised nothing is alarming at this point. Start Meloxicam 15 MG once a day along with tizanidine 4 MG at bedtime as needed. He can take Tylenol arthritis as needed. Avoid bending, lifting and stooping but encourages stretching exercises. He may benefit going to going on physical therapy. General health concerns discussed with patient. Scribe services used to formulate this note under HIPAA compliance and under [place] law mandated for scribe services. Patient aware of service. Verbal consent and written consent taken from the patient. Patient understands and verbalizes understanding of the scribes services and all questions answered regarding scribes services. Patient agrees to use of scribes services. 06/07/2024 Unspecified injury of lower back, initial encounter (ICD-10 - S39.92XA) Mr. Aguiar is a 43 year old gentleman with history of anxiety disorder, lower back pain due work injury from lifting heavy. This is an ongoing pain since April 25/2024. Plan as follows: Low back pain: - Pain is persistent. Triggered by movements. SLR is significant on the right with a 30 degree compared to left of 70 degrees. It has worsened compared to prior visit. Strength of 4/5 in the right. Limited ROM of low back. He is currently on Meloxicam 15mg once a day and Tylenol prn. 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 - He defers getting referred to PT until his work sends him to PT and Orthopedic. - FMLA paper has been filled out for one month. I have rendered the services for this patient under direct supervision of Dr. Davis, who did not see the patient but was available upon request 07/18/2024 Other intervertebral disc degeneration, thoracolumbar region (ICD-10 - M51.35) Mr. Aguiar is a 43 year old gentleman with history of anxiety disorder here still complaining of lower back pain due to injury at work due to lifting heavy. This is an ongoing pain since April 25/2024. Plan is as follows: Back pain. He went to physical therapy not too long ago and he had 2 sessions with no improvement. He has appointment with orthopedic at [place] hopefully next week. He takes meloxicam and tylenol for pain. He will be out of work until the last day of his therapy which will be at the end of July. General health concerns discussed with patient. Scribe services used to formulate this note under HIPAA compliance and under [place] law mandated for scribe services. Patient aware of service. Verbal consent and written consent taken from the patient. Patient understands and verbalizes understanding of the scribes services and all questions answered regarding scribes services. Patient agrees to use of scribes services. 08/01/2024 Other intervertebral disc degeneration, thoracolumbar region (ICD-10 - M51.35) Mr. Aguiar is a 43 year old gentleman with history of anxiety disorder here for follow up. Plan is as follows: lumbar radiculopathy/le ft-sided sciatica. He goes to physical therapy 2 times a week. He will see orthopedic at [facility] on September 01 and advised to [employer] regarding FMLA. He takes meloxicam and tylenol for pain. He also mentioned that his work does not want him to come back until he is evaluated by orthopedic and there is no light duty for. him General health concerns discussed with patient. Scribe services used to formulate this note under HIPAA compliance and under [place] law mandated for scribe services. Patient aware of service. Verbal consent and written consent taken from the patient. Patient understands and verbalizes understanding of the scribes services and all questions answered regarding scribes services. Patient agrees to use of scribes services. 08/01/2024 Sciatica, left side (ICD-10 - M54.32) Mr. Aguiar is a 43 year old gentleman with history of anxiety disorder here for follow up. Plan is as follows: lumbar radiculopathy/le ft-sided sciatica. He goes to physical therapy 2 times a week. He will see orthopedic at [facility] on September 01 and advised to [employer] regarding FMLA. He takes meloxicam and tylenol for pain. He also mentioned that his work does not want him to come back until he is evaluated by orthopedic and there is no light duty for. him General health concerns discussed with patient. Scribe services used to formulate this note under HIPAA compliance and under [place] law mandated for scribe services. Patient aware of service. Verbal consent and written consent taken from the patient. Patient understands and verbalizes understanding of the scribes services and all questions answered regarding scribes services. Patient agrees to use of scribes services. 01/20/2024 Anxiety disorder, unspecified (ICD-10 - F41.9) Mr. Aguiar is a 43 year old gentleman with history of anxiety disorder and he sees psychiatrist here for annual physical. Plan is as follows: Anxiety disorder. Mood stable on current regimen and he sees psychiatrist. Class 1 obesity. He lost 9 lbs since last visit. Advised dietary restrictions and regular exercise. Goal is to lose 4-6 lbs a month. Colon cancer screening. Referred to GI for colonoscopy. Immunizations. He completed his COVID-19 and influenza vaccines. Screening BW before next appointment. Screening blood work before next appointment. General health concerns discussed with patient. General health concerns discussed with patient. Scribe services used to formulate this note under HIPAA compliance and under [place] law mandated for scribe services. Patient aware of service. Verbal consent and written consent taken from the patient. Patient understands and verbalizes understanding of the scribes services and all questions answered regarding scribes services. Patient agrees to use of scribes services. Plan Of Treatment Future Test Test Name Order Date COMPREHENSIVE METABOLIC PANEL 04/24/2022 LIPID PANEL 04/24/2022 Next Appt Details Provider Name:DIMPLE DAVIS , 01/25/2025 08:15:00 AM, [address] [place] [address], [phone], Insurance Providers Payer Name Payer Address Payer Phone Subscriber Number Group Number Insured Name Patient Relationship to Insured Coverage Start Date Coverage End Date [facility] [address] [place] [address] [id number] URMILA AGUIAR Self - patient is the insured 2 Medical (General) History Medical History History ICD Code Generalized anxiety disorder Snoring Class I obesity Former smoker Surgical History Surgery Date(Month/Year) Gall Bladder
== END 2024-12-30 14:54 | disposition home or self-care (01) ==
PROVIDERS: PCP Hospitalist; Visit Provider Nurse Practitioner Family
DX: M62.830 Muscle spasm of back (principal); M54.50 Low back pain, unspecified; M79.604 Pain in right leg; M54.51 Vertebrogenic low back pain; Y99.0 Civilian activity done for income or pay; M51.369 Other intervertebral disc degeneration, lumbar region without mention of lumbar back pain or lower extremity pain
CPT/HCPCS: 99214; G2211

== ENCOUNTER → 2024-12-30 14:33 | Outpatient (BNVA) | payer OTHER, BC, SELFPAY | PROVIDERS: PCP Hospitalist; Visit Provider Nurse Practitioner Family | DX: M62.830 Muscle spasm of back (principal); M54.50 Low back pain, unspecified; M79.604 Pain in right leg; M54.51 Vertebrogenic low back pain; M51.369 Other intervertebral disc degeneration, lumbar region without mention of lumbar back pain or lower extremity pain | CPT/HCPCS: 99212 ==

== ENCOUNTER 2025-02-13 09:17 | Outpatient (AMB) | payer OTHER, SELFPAY ==
--- NOTE | 2025-02-13 09:20 | A.OFFVIS_ITS ---
Vital Signs 02/13/25 09:23 Height 6 ft 3 in Weight 276 lb BMI 34.5 BP 136/99 H Blood Pressure Location Lt brachial Position Sitting Pulse 75 Pulse Source Pulse Oximeter Pulse Oximetry (%) 99 Oxygen Delivery Method Room Air Intake Visit Reasons: Intracept Procedure DENIED: Discuss Other Options Intake Note: Pain today 6.510 Workers' Compensation Mediator Required: No Accompanied by: Self / Same As Patient Allergies amoxicillin [AMOXICILLIN] Allergy (Unknown, Verified 02/13/25 09:24) HIVES, rash kiwi [KIWI] Allergy (Unknown, Verified 02/13/25 09:24) TINGLING penicillin G procaine Allergy (Unknown, Verified 02/13/25 09:24) rash Penicillins [PENICILLINS] Allergy (Unknown, Verified 02/13/25 09:24) HIVES OYSTERS Allergy (Unknown, Uncoded 09/08/24 08:36) N/V/D HPI Comments Details: The patient is a 44-year-old male presenting with chronic back pain and associated radicular and discogenic symptoms. The back pain has been persistent since last summer due to work related injury in April 2024, radiating to the right leg. The issue exacerbates with prolonged sitting or standing and most severe with bending, significantly affecting daily activities, personal care, work and sleep. An epidural steroid injection in October provided temporary relief, highlighting ongoing chronic lumbar discogenic pain and radiculopathy concerns. The patient reports substantial functional impairments, including difficulty in performing basic activities like bending and dressing due to the pain. Continued pain despite previous therapeutic approaches such as steroid injections underscores the severity and resistance of the condition, leading to ongoing discussions regarding possible Intracept ablation treatment targeting lumbar levels L2, L3, and L4. The patient is highly focused on avoiding surgical interventions unless other options are exhausted, reflecting a cautious approach in managing this chronic pain condition. - Affect: The patient notes the pain greatly impacts his daily life and functional abilities, particularly activities such as dressing or driving. - Analgesia: Previous right L2-L3 ALBERTINA provided 50% pain relief for about two weeks. Current pain remains severe. - Adverse Effects: No adverse effects from medications reported (gabapentin, Tylenol extra strength, meloxicam). - Activities of Daily Living: The pain significantly limits bending, dressing, and driving, impacting overall quality of life. - Aberrant Drug Related Behaviors: None reported. Holding meloxicam for upcoming colonoscopy 02/14/25. PRIOR: Patient presents today for follow up after Neurosurgery evaluation with Dr. Small on 12/23/24. He continues to endorse persistent low back pain with radiculopathy down the right leg. Pain is increased with walking, forward bending and flexion or prolonged sitting. He also reports middle back pain with changing positions, movements and sleep. Patient continues to manage his symptoms with activity modifications, NSAIDs, Tylenol, gabapentin and heat therapy. He uses TENS unit with partial benefit. Recent lumbar ALBERTINA injection provided him with temporary and partial pain relief. Patient was deemed non- surgical at [facility] but was offered diagnostic discogram and Intracept for discogenic low back pain. Patient reports he was referred to [facility] by [facility] but prefers to continue interventional treatments through our office. Denies any recent cough, cold, infection, fever or other significant changes in medical history since last office visit. Past Procedures: 10/27/24: Right L2-L3 interlaminar parasagittal ALBERTINA-50% pain relief for <2 weeks PRIOR: Patient is a 43 years old male presents today for evaluation of right sided lumbar radiculopathy and discussion for potential epidural steroid injection. This is a Worker?s Comp Case claim #[id number]. DOI: 04/25/24. 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 Pain is predominantly discogenic and radicular with significant increase in his symptoms with bending, twisting, flexing forward as well as prolonged walking or standing, lifting, pulling or sq uatting. Pain radiates into his right lower back and buttock and into the posterior leg and thigh and into his ankle. He is currently active with physical therapy and completed 8 sessions so far with minimal improvement. Pain affects his daily activities and functioning, mobility, mood, sleep, work, social interactions and quality of life. Patient also has been managing pain with Tylenol, NSAIDs and gabapentin with partial benefit. Denies previous spine surgery or injections or previous injury to his back. Patient has completed lumbar x-ray and MRI as noted below and was referred to our office by [facility] for potential L2-L3 ALBERTINA. Patient has been off work since injury. Denies any fever or chills, abdominal or groin pain, foot drop, bladder or bowel dysfunction or saddle anesthesia. Reports intermittent right lower extremity weakness with pain. Patient reports eczema rash in his trunk, upper and lower extremities with appearance of dry, scaly and raised various sizes of patches without redness, blistering or drainage. Oswestry Low Back Disability Score=25 (severe disability) Location: Right lower back Duration: 6 months Characteristics of symptom or complaint: tightness, sharp Aggravating or associated factors: Lfting, twisting or bending to the right, walking, standing Relieving factors: Sitting, acetaminophen, NSAIDs Treatment: gabapentin, acetaminophen, meloxicam, PT PFSH Medical History Foreign body of right index finger with infection (~09/09/20) ASOM (acute suppurative otitis media) Surgical History History of cholecystectomy Social History Alcohol intake: never Patient Tobacco Use Status: Never used Tobacco Current occupational status: employed Current occupation: [employer] - Right Handed Review of Systems Const Details: - Musculoskeletal: Reports lower back pain radiating to right leg and knee; denies left-sided symptoms. - Neurological: Reports numbness in feet after prolonged sitting; denies electric, numbness or tingling sensations during physical testing. Denies bladder or bowel dysfunction or saddle anesthesia. - Genitourinary: Denies frequent urination or other urinary issues; notes occasional radiation to groin. - General: Denies fever, fatigue, or generalized weakness. All systems reviewed & are unremarkable except as noted in HPI and below Physical Exam Vital Signs: Last Vital Signs Pulse 75 02/13/25 09:23 BP 136/99 H 02/13/25 09:23 Pulse Ox 99 02/13/25 09:23 Oxygen Delivery Method Room Air 02/13/25 09:23 BMI result Body Mass Index 34.5 General: Appears afebrile. Alert and oriented. Mood and affect appropriate. Follows and participates in conversation appropriately. Respiratory effort is unlabored. No cough. Able to transition from sit to stand unassisted. Ambulates with bilateral normal heel strike and toe off. General: Yes no CVA tenderness Back/Spine/Pelvis Other: Limited lumbar ROM due to pain. Normal gait, no limping. Can flex forward to 60- 65 degrees and extend to 10-15 degrees before experiencing lumbar pain, worse pain with bending and flexion forward and right lateral bending and twisting. Demonstrates 5/5 left and 4/5 right strength of quadriceps bilaterally as well as flexion/dorsiflexion of bilateral feet against resistance. 2+ pedal pulses bilaterally. Straight leg rise with dorsiflexion is negative bilaterally. +2 patellar and achilles reflexes bilaterally. Facet loading test positive bilaterally. Krunal sign is positive bilaterally, Max?s and Stinchfield tests are positive on the right. No groin pain with I/E hip rotations. Valsalva maneuver reproduces right sided low back pain. No clonus. Back: no CVA tenderness Cervical Spine: cervical ROM normal, cervical muscular tenderness and No Cervical spine tenderness Thoracic/Lumbar Spine: thoracic and lumbar spine normal to inspection, No Thoracic/lumbar spine scar(s), Lasegue's sign negative, straight leg raise negative bilaterally, pain with thoraco-lumbar ROM, paraspinal muscle tenderness on the right in the mid lumbar and in the lower lumbar, thoraco-lumbar ROM limited, No thoracic spinal tenderness and lumbar spinal tenderness at L3, at L4 and at L5 Pelvis: buttock tenderness on the right Sacroiliac joints: on the right tender to palpation and on the left nontender Extrem General: Yes capillary refill normal, Yes no clubbing, cyanosis or edema and Yes no calf tenderness Results Reviewed Results Reviewed: MR LUMBAR SPINE WITHOUT CONTRAST 09/07/24 CLINICAL INFORMATION: Radiculopathy, lumbar region COMPARISON: None available. TECHNIQUE: MRI of the lumbar spine was obtained using routine sequences without contrast. FINDINGS: There are 5 nonrib-bearing lumbar-type vertebrae. Straightening of the normal lumbar lordosis. No listhesis. No acute bone marrow abnormality. Diffusely heterogeneous bone marrow signal is likely degenerative. The vertebral body heights are preserved. Multilevel disc desiccation with mild to moderate disc height loss at L2-3. Type II endplate changes at L2-3. Multilevel endplate osteophytosis. The visualized spinal cord is normal in caliber. No abnormal cord signal. The conus medullaris terminates at L1. T12/L1: No significant spinal canal nor foraminal narrowing. L1-2: No significant spinal canal or neural foraminal narrowing. L2-3: Shallow disc bulge and bilateral facet arthrosis. Prominent dorsal epidural fat. No significant spinal canal or neural foraminal narrowing. L3-4: Prominent dorsal epidural fat. Mild right greater than left neural foraminal narrowing with the disc abutting the exiting L2 nerve roots bilaterally. No significant spinal canal stenosis L4-5: Bilateral facet arthrosis. Mild right greater than left neural foraminal narrowing with the disc abutting the exiting L4 nerve roots bilaterally. No significant spinal canal stenosis. L5-S1: Prominent epidural fat near completely effaces the thecal sac. No significant neural foraminal narrowing. The paravertebral soft tissues are unremarkable. Right renal cyst. IMPRESSION: 1. Multilevel lumbar spondylosis without significant spinal canal stenosis. There is mild right greater than left neural foraminal narrowing at L3-L4 and L4-L5 with the disc abutting the exiting L2 and L4 nerve roots bilaterally. 2. Epidural lipomatosis at L5-S1 near completely effaces the thecal sac. XR LUMBOSACRAL SPINE 08/11/24 CLINICAL INFORMATION: Back pain. COMPARISON: None available. TECHNIQUE: Three views of the lumbosacral spine. FINDINGS: Normal vertebral body alignment. The lumbar lordosis is maintained. No acute fracture or subluxation. No loss of vertebral body height. Minimal loss of intervertebral disc height with tiny endplate osteophytes at L5-S1. No concerning lytic or blastic osseous lesion. No abnormal soft tissue calcification. Right upper quadrant surgical clips. IMPRESSION: Minimal degenerative disc disease at L5-S1. Assessment & Plan Assessment & Plan (1) Low back pain radiating to right leg: Code(s): M54.50 - Low back pain, unspecified; M79.604 - Pain in right leg Category: Medical (2) Vertebrogenic low back pain: Code(s): M54.51 - Vertebrogenic low back pain Category: Medical (3) Work related injury: Code(s): Y99.0 - Civilian activity done for income or pay Category: Medical (4) Lumbar degenerative disc disease: Code(s): M51.369 - Other intervertebral disc degeneration, lumbar region without mention of lumbar back pain or lower extremity pain Category: Medical (5) Lumbar disc herniation: Code(s): M51.26 - Other intervertebral disc displacement, lumbar region Category: Medical Plan For the management of the patient's chronic lumbar discogenic pain and rad iculopathy, efforts will be made to achieve approval for Intracept ablation at lumbar levels L2, L3, and L4 to address discogenic low back pain sustainably. Given the insufficient relief from previous steroid injections, additional interventional options or surgical consults may be explored, particularly if insurance approval is not secured or if symptom severity dictates further action. MRI findings showed multilevel degenerative changes on the endplates with Modic changes, most pronounced at L2-L3, he is a good candidate for Intracept procedure. We reviewed BVN ablation (Intracept) procedure vs. diagnostic discogram vs spinal cord stimulation. Back pain with continued symptoms with minimal improvement from physical therapy and HEP, Tylenol, naproxen, gabapentin, TENS unit, and interlaminar ALBERTINA at L2-L3. We reviewed MRI imaging again with patient again today. He prefers with Intracept procedure as next steps. Schedule L2, L3, L4 BVN (Intracept) ablation with sedation and fluoroscopy. Expectations, risks and benefits were reviewed. Patient is aware he will be contacted to schedule this procedure. All questions and concerns have been answered and patient agreed with the treatments plan. Follow up after Intracept and sooner as needed. Justification for interventional therapy: ? Patient with average pain > 6/10 ? Patient has exhausted conservative therapy . Modic changes noted on MRI exam with positive physical exam findings with forward and lateral loading The risks, consequences, alternatives, and benefits of various treatment options were discussed with the patient in great detail, including conservative management, injections and procedures. Patient was informed and verbally consented to the use of an ambient scribe for clinic note documentation during this visit. Patient Instructions: During the consultation, I discussed the patient's diagnosis of chronic lumbar discogenic pain with associated radiculopathy. We considered the previous treatment results from the epidural steroid injection and concluded that pursuing Intracept ablation might offer enhanced relief. The potential benefits and risks of this procedure were reviewed, with attention to possible insurance denial, leading to agreed discussion of a surgical consult if symptom severity necessitates such consideration. Continuation with conservative measures was emphasized. Follow-up and potential consultations with a neurosurgeon were advised where necessary, based on the outcome of the resubmission. - Do not take meloxicam today or tomorrow due to the scheduled colonoscopy. - Continue taking gabapentin and acetaminophen as directed. - Use heat as an additional measure for managing any discomfort. - Await insurance approval for potential Intracept procedure as discussed today. - Patient is aware to call if pain worsens or if he develops any red flag symptoms to seek emergency care. Coding Level of Care Code Est Pt Level 4 (82241) Complex EM visit Add On G2211 Diagnoses Low back pain radiating to right leg M54.50; M79.604 Vertebrogenic low back pain M54.51 Work related injury Y99.0 Lumbar degenerative disc disease M51.369 Lumbar disc herniation M51.26
[2025-02-13 09:23] VITALS: BP 136/99; PULSE 75; O2SAT 99; BMI 34.5
--- OUTSIDE RECORDS SUMMARY | 2025-02-13 10:16 | XMS_ITS ---
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 Name Role Phone DIMPLE DAVIS Primary Care Provider REASON FOR VISIT Sleep Medicine Referral Encounters Encounter Location Date Provider Diagnosis [facility] [address] [place] [address] 02/02/2025 DIMPLE DAVIS Plan Of Treatment Next Appt Details Provider Name:Laisha retana, 02/27/2025 10:00:00 AM, [address] [place] [address], [place], [address], Provider Name:DIMPLE DAVIS , 01/26/2026 08:00:00 AM, [address] [place] [address], [place], [address], Progress Notes * URMILA REID EDOB:1980 (44 yo M)Acc No.[id number]:02/02/2025 Patient:?URMILA REID :[id number]???Age:44 Y???Sex:Male Address: [place] [address] * * Date:?
--- OUTSIDE RECORDS SUMMARY | 2025-02-13 10:16 | XMS_ITS | Patient Health Record ---
Author Organization [email or web address] [facility] Address [address] [place] [address] Care Team Providers Care Inventory Representative Name Role Phone DIMPLE DAVIS Primary Care Provider Laisha Howell Unavailable [phone] Allergies Allergen (clinical drug ingredient) Drug/Non Drug Allergy documented on EMR Reaction Allergy Type Onset Date Status amoxicillin Amoxicillin Unknown Drug Allergy Act yumiko penicillamine Penicillamine Unknown Drug Allergy Active Reason For Referral Reason Evaluation and manag ement Diagnosis 1 Dorsalgia, unspecifi ed (M54.9) Referral Organization [employer] [facility] Referring Provider First Name DIMPLE Referring Provider Last Name [facility] Referring Provider Speciality Internal M edicine Referred Provider Specialty Physical The rapist General Notes [facility] Dept will call patient for scheduling., Zonia Herman 05/16/2024 01:29:05 PM > Referral Priority Routine Reason Please evaluate and treat Diagnosis 1 Unspecified injury o f lower back, initial encounter (S39.92XA) Referral Organization [facility] Referring Provider First Name DIMPLE Referring Provider Last Name [facility] Referring Provider Speciality Internal M edicine Referred Provider Specialty Orthopedic S urgery General Notes Referral faxed to [facility]. Please contact pt to schedule an appt.Ector Kayla 06/30/2024 11:18:52 AM > Referral Priority Routine Reason Evaluation and manag ement Diagnosis 1 Unspecified injury o f lower back, initial encounter (S39.92XA) Referral Organization [facility] Referring Provider First Name MUSA Referring Provider Last Name [facility] Referring Provider Speciality Internal M edicine Referred Provider Specialty Orthopedic S urgery General Notes Referral sent to [facility] - Office will call patient for scheduling., Zonia Herman 07/22/2024 03:27:34 PM > Referral Priority Routine Reason snoring Please seth álvarezate and treat Diagnosis 1 Snoring (R06.83) Referral Organization [facility] Referring Provider First Name MUSA Referring Provider Last Name RYAN Referring Provider Speciality Internal M edicine Referred Provider Specialty Sleep Medici ne General Notes Please call the [place] [facility] to schedule the appointment, Pat Giles 02/02/2025 03:32:19 PM > Referral Priority Routine Medications Medication SIG (Take, Route, Frequency, Duration) Notes Start Date End Date Status Meloxicam 15 MG TAKE 1 TABLET BY ALIYAH TH EVERY DAY FOR 30 DAYS for 30 Active Acetaminophen ER 650 MG TAKE 2 TABLETS B Y MOUTH TWICE A DAY NEEDED FOR 30 DAYS for 30 Active Meclizine HCl 25 MG 1 tablet as needed O rally Three Times Daily for 30 day(s) 05/13/2018 Active KlonoPIN 0.5 MG Take 1-2 tablets anila ly as needed Orally Once a day Psych Active Sertraline HCl 50 MG 1 tablet Orally Onc e a day for 30 days Active Gabapentin 100 MG 1 capsule at bedtime Orally Once at night Active amLODIPine Besylate 2.5 MG 1 tablet Oral ly Once a day for 30 days 01/25/2025 Active Immunizations Vaccine Route Administration Date Status Comme nts COVID Moderna Unknown 01/31/2021 Administered COVID Moderna Unknown 02/28/2021 Administered COVID Moderna Unknown 10/31/2021 Administered Social History Tobacco Use: Social History Observation [...] Problem Status W/U Status Risk Notes Problem Vitamin D deficiency (13619292) Vitamin D deficiency, unspecified (E55.9) Active confirmed Problem Obesity due to excess calories (555183568) Other obesity due to excess calories (E66.09) Active confirmed Problem Anxiety disorder (208403799) Anxiety disorder, unspecified (F41.9) Active confirmed Problem Degeneration of thoracolumbar intervertebral disc (76765869) Other intervertebral disc degeneration, thoracolumbar region (M51.35) Active confirmed Problem Essential hypertension (30236299) Essential (primary) hypertension (I10) Active confirmed Problem Body mass index 30+ - obesity (320332783) Body mass index [BMI]30.0-30.9, adult (Z68.30) Active confirmed Problem Body mass index 30.00 to 34.99 (037221788215427) Body mass index [BMI] 33.0-33.9, adult (Z68.33) Active confirmed Problem Sciatica (66032956) Sciatica of right side (M54.31) Active confirmed Vital Signs Heart Rate 79 /min 02/09/2025 Temperature 97.7 degrees Fahrenheit 02/09/2025 Oximetry 96 % 02/09/2025 Blood pressure diastolic 100 mm Hg 02/09/2025 Height 74.76 in 02/09/2025 Blood pressure systolic 140 mm Hg 02/09/2025 Weight 276.5 lbs 02/09/2025 BMI 34.78 kg/m2 02/09/2025 Encounters Encounter Location Date Provider Diagnosis [address] [address] 06/01/2024 MUSAJACQUELIN DAVIS [address] [address] 05/11/2024 DIMPLE DAVIS Strain of muscle, fascia and tendon of lower back, initial encounter S39.012A [address] [address] 06/07/2024 Laisha Howell Unspecified injury o f lower back, initial encounter S39.92XA [address] [address] 07/18/2024 DIMPLE DAVIS Other intervertebral disc degeneration, thoracolumbar region M51.35 [facility] [address] [place] [address] 08/01/2024 DIMPLE DAVIS Other intervertebral disc degeneration, thoracolumbar region M51.35 and Sciatica, left side M54.32 [facility] [address] [place] [address] 01/25/2025 DIMPLE DAVIS Annual physical exam Z00.00 ; Anxiety disorder, unspecified F41.9 ; Essential (primary) hypertension I10 ; Vitamin D deficiency, unspecified E55.9 ; Other obesity due to excess calories E66.09 ; Dietary counseling and surveillance Z71.3 and Encounter for screening for cardiovascular disorders Z13.6 [facility] [address] [place] [address] 02/09/2025 Laisha Howell Essential (primary) hypertension I10 [facility] [address] [place] [address] 02/02/[address] [place] [address] 04/27/[address] [place] [address] 05/18/[address] [place] [address] 06/29/[address] [place] [address] 07/22/[address] [place] [address] 08/12/[address] [place] [address] 01/25/[address] [place] [address] 04/27/[address] [place] [address] 05/16/[address] [place] [address] 05/16/[address] [place] [address] 06/07/[address] [place] [address] 06/30/[address] [place] [address] 07/08/[address] [address] 08/04/[address] [address] 08/26/2024 [facility] Assessments Encounter Date Diagnosis (ICD Code) Assessment Notes Treatment Notes Treatment Clinical Notes Section Notes 06/07/2024 Unspecified injury of lower back, initial [...] improvement. He has appointment with orthopedic at [place] hopefully next week. He takes meloxicam and tylenol for pain. He will be out of work until the last day of his therapy which will be at the end of July. General health concerns discussed with patient. Scribe services used to formulate this note under HIPAA compliance and under [place] law mandated for scribe services. Patient aware [...] a week. He will see orthopedic at [facility] on September 01 and advised to [employer] regarding FMLA. He takes meloxicam and tylenol for pain. He also mentioned that his work does not want him to come back until he is evaluated by orthopedic and there is no light duty for. him General health concerns discussed with patient. Scribe services used to formulate this note under HIPAA compliance and under [place] law mandated for scribe services. Patient aware [...] a week. He will see orthopedic at [facility] on September 01 and advised to [employer] regarding FMLA. He takes meloxicam and tylenol for pain. He also mentioned that his work does not want him to come back until he is evaluated by orthopedic and there is no light duty for. him General health concerns discussed with patient. Scribe services used to formulate this note under HIPAA compliance and under [place] law mandated for scribe services. Patient aware of service. Verbal consent and written consent taken from the patient. Patient understands and verbalizes understanding of the scribes services and all questions answered regarding scribes services. Patient agrees to use of scribes services. 01/25/2025 Anxiety disorder, unspecified (ICD-10 - F41.9) Gabe is 44 years old pleasant gentleman with generalized anxiety disorder, right-sided sciatic nerve impingement, vitamin D, morbid obesity and also snoring at night and sometimes daytime fatigue is here for annual physical. Plan is as follows Generalized anxiety disorder. His PHQ is 16. We will increase Zoloft to 50 mg and he has a follow-up appointment with psychiatrist in March and will review the medications can. Lifestyle modifications discussed with the patient. Hypertension. His blood pressure is running high today. Restrictions and start 0.5 still. EKG normal sinus rhythm [address] or T weight changes with no bundle-branch blocks and normal intervals Snoring. he is morbidly obese and complains of daytime sleepiness. Refer for polysomnographic . Vitamin D deficiency. Continue vitamin D supplements and check vitamin D levels Right-sided sciatica. Currently on gabapentin 100 mg daily at bedtime and also takes Tylenol arthritis. He is following up with [facility] and is waiting to have intra-facet injection. Morbid obesity. Lifestyle modifications discussed with the patient. Advised to lose roughly 6 pounds a month. Portion control, low calorie diet, high protein diet recommended. He is waiting to have colonoscopy this year. 01/25/2025 Annual physical exam (ICD-10 - Z00.00) Gabe is 44 years old pleasant gentleman with generalized anxiety disorder, right-sided sciatic nerve impingement, vitamin D, morbid obesity and also snoring at night and sometimes daytime fatigue is here for annual physical. Plan is as follows Generalized anxiety disorder. His PHQ is 16. We will increase Zoloft to 50 mg and he has a follow-up appointment with psychiatrist in March and will review the medications can. Lifestyle modifications discussed with the patient. Hypertension. His blood pressure is running high today. Restrictions and start 0.5 still. EKG normal sinus rhythm [address] or T weight changes with no bundle-branch blocks and normal intervals Snoring. he is morbidly obese and complains of daytime sleepiness. Refer for polysomnographic . Vitamin D deficiency. Continue vitamin D supplements and check vitamin D levels Right-sided sciatica. Currently on gabapentin 100 mg daily at bedtime and also takes Tylenol arthritis. He is following up with [facility] and is waiting to have intra-facet injection. Morbid obesity. Lifestyle modifications discussed with the patient. Advised to lose roughly 6 pounds a month. Portion control, low calorie diet, high protein diet recommended. He is waiting to have colonoscopy this year. 02/09/2025 Essential (primary) hypertension (ICD-10 - I10) Mr. Aguiar is a 44 year old gentleman with history of anxiety disorder, right-sided sciatica, morbid obesity, vitamin D deficiency here for Follow-up on blood pressure. Plan as follows Hypertension - Blood pressure is elevated in the office today. He has not started on amlodipine 2.5 mg as he has not received the prescription. Refilled the medication. Possible side effects have been discussed. Advised on reducing salt intake and increase hydration and exercising with weight loss. Advised patient to also get his blood work done so that can be reviewed in the next visit I have rendered the services for this patient under direct supervision of Dr. Davis, who did not see the patient but was available upon request 05/11/2024 Strain of muscle, fascia and tendon [...] this note under HIPAA compliance and under [place] law mandated for scribe services. Patient aware of service. Verbal consent and written consent taken from the patient. Patient understands and verbalizes understanding of the scribes services and all questions answered regarding scribes services. Patient agrees to use of scribes services. 01/25/2025 Essential (primary) hypertension (ICD-10 - I10) Gabe is 44 years old pleasant gentleman with generalized anxiety disorder, right-sided sciatic nerve impingement, vitamin D, morbid obesity and also snoring at night and sometimes daytime fatigue is here for annual physical. Plan is as follows Generalized anxiety disorder. His PHQ is 16. We will increase Zoloft to 50 mg and he has a follow-up appointment with psychiatrist in March and will review the medications can. Lifestyle modifications discussed with the patient. Hypertension. His blood pressure is running high today. Restrictions and start 0.5 still. EKG normal sinus rhythm [address] or T weight changes with no bundle-branch blocks and normal intervals Snoring. he is morbidly obese and complains of daytime sleepiness. Refer for polysomnographic . Vitamin D deficiency. Continue vitamin D supplements and check vitamin D levels Right-sided sciatica. Currently on gabapentin 100 mg daily at bedtime and also takes Tylenol arthritis. He is following up with [facility] and is waiting to have intra-facet injection. Morbid obesity. Lifestyle modifications discussed with the patient. Advised to lose roughly 6 pounds a month. Portion control, low calorie diet, high protein diet recommended. He is waiting to have colonoscopy this year. 01/25/2025 Vitamin D deficiency, unspecified (ICD-10 - E55.9) Gabe is 44 years old pleasant gentleman with generalized anxiety disorder, right-sided sciatic nerve impingement, vitamin D, morbid obesity and also snoring at night and sometimes daytime fatigue is here for annual physical. Plan is as follows Generalized anxiety disorder. His PHQ is 16. We will increase Zoloft to 50 mg and he has a follow-up appointment with psychiatrist in March and will review the medications can. Lifestyle modifications discussed with the patient. Hypertension. His blood pressure is running high today. Restrictions and start 0.5 still. EKG normal sinus rhythm [address] or T weight changes with no bundle-branch blocks and normal intervals Snoring. he is morbidly obese and complains of daytime sleepiness. Refer for polysomnographic . Vitamin D deficiency. Continue vitamin D supplements and check vitamin D levels Right-sided sciatica. Currently on gabapentin 100 mg daily at bedtime and also takes Tylenol arthritis. He is following up with [facility] and is waiting to have intra-facet injection. Morbid obesity. Lifestyle modifications discussed with the patient. Advised to lose roughly 6 pounds a month. Portion control, low calorie diet, high protein diet recommended. He is waiting to have colonoscopy this year. 01/25/2025 Other obesity due to excess calories (ICD-10 - E66.09) Gabe is 44 years old pleasant gentleman with generalized anxiety disorder, right-sided sciatic nerve impingement, vitamin D, morbid obesity and also snoring at night and sometimes daytime fatigue is here for annual physical. Plan is as follows Generalized anxiety disorder. His PHQ is 16. We will increase Zoloft to 50 mg and he has a follow-up appointment with psychiatrist in March and will review the medications can. Lifestyle modifications discussed with the patient. Hypertension. His blood pressure is running high today. Restrictions and start 0.5 still. EKG normal sinus rhythm [address] or T weight changes with no bundle-branch blocks and normal intervals Snoring. he is morbidly obese and complains of daytime sleepiness. Refer for polysomnographic . Vitamin D deficiency. Continue vitamin D supplements and check vitamin D levels Right-sided sciatica. Currently on gabapentin 100 mg daily at bedtime and also takes Tylenol arthritis. He is following up with [facility] and is waiting to have intra-facet injection. Morbid obesity. Lifestyle modifications discussed with the patient. Advised to lose roughly 6 pounds a month. Portion control, low calorie diet, high protein diet recommended. He is waiting to have colonoscopy this year. 01/25/2025 Dietary counseling and surveillance (ICD-10 - Z71.3) Gabe is 44 years old pleasant gentleman with generalized anxiety disorder, right-sided sciatic nerve impingement, vitamin D, morbid obesity and also snoring at night and sometimes daytime fatigue is here for annual physical. Plan is as follows Generalized anxiety disorder. His PHQ is 16. We will increase Zoloft to 50 mg and he has a follow-up appointment with psychiatrist in March and will review the medications can. Lifestyle modifications discussed with the patient. Hypertension. His blood pressure is running high today. Restrictions and start 0.5 still. EKG normal sinus rhythm [address] or T weight changes with no bundle-branch blocks and normal intervals Snoring. he is morbidly obese and complains of daytime sleepiness. Refer for polysomnographic . Vitamin D deficiency. Continue vitamin D supplements and check vitamin D levels Right-sided sciatica. Currently on gabapentin 100 mg daily at bedtime and also takes Tylenol arthritis. He is following up with [facility] and is waiting to have intra-facet injection. Morbid obesity. Lifestyle modifications discussed with the patient. Advised to lose roughly 6 pounds a month. Portion control, low calorie diet, high protein diet recommended. He is waiting to have colonoscopy this year. 01/25/2025 Encounter for screening for cardiovascular disorders (ICD-10 - Z13.6) Gabe is 44 years old pleasant gentleman with generalized anxiety disorder, right-sided sciatic nerve impingement, vitamin D, morbid obesity and also snoring at night and sometimes daytime fatigue is here for annual physical. Plan is as follows Generalized anxiety disorder. His PHQ is 16. We will increase Zoloft to 50 mg and he has a follow-up appointment with psychiatrist in March and will review the medications can. Lifestyle modifications discussed with the patient. Hypertension. His blood pressure is running high today. Restrictions and start 0.5 still. EKG normal sinus rhythm [address] or T weight changes with no bundle-branch blocks and normal intervals Snoring. he is morbidly obese and complains of daytime sleepiness. Refer for polysomnographic . Vitamin D deficiency. Continue vitamin D supplements and check vitamin D levels Right-sided sciatica. Currently on gabapentin 100 mg daily at bedtime and also takes Tylenol arthritis. He is following up with [facility] and is waiting to have intra-facet injection. Morbid obesity. Lifestyle modifications discussed with the patient. Advised to lose roughly 6 pounds a month. Portion control, low calorie diet, high protein diet recommended. He is waiting to have colonoscopy this year. Plan Of Treatment Future Test Test Name Order Date [id number] 01/25/2025 Lipid Panel-[id number] 01/25/2025 Comp. Metabolic Panel ([id number] 2024 25-Hydroxyvitamin D LCMS D2+[id number] Next Appt Details Provider Name:Laisha retana, 02/27/2025 10:00:00 AM, [address], [place], [address], Provider Name:DIMPLE DAVIS , 01/26/2026 08:00:00 AM, [address], [place], [address], Insurance Providers Payer Name Payer Address Payer Phone Subscriber Number Group Number Insured Name Patient Relationship to Insured Coverage Start Date Coverage End Date [facility] [address] [place] [address] [id number] GABE AGUIAR Self - patient is the insured 5 Medical (General) History Medical History History ICD Code Generalized anxiety disorder Snoring Class I obesity Former smoker Surgical History Surgery Date(Month/Year) Gall Bladder
--- OUTSIDE RECORDS SUMMARY | 2025-02-13 10:16 | XMS_ITS | Continuity of Care Document ---
Author Organization [facility] Address [address] [address] Insurance Providers Payer Plan Claims Address Claims Phone Policy Number Group Number Relation Employer Guarantor Name Guarantor Guarantor Address Guarantor Phone [employer] [id number] Self Gabe Aguiar [address] [place] [address] [employer] of [employer] [facility] [address], [place] [address] tel:[phone] [id number] Self Gabe Aguiar [address] [place] [address] Problems Condition ICD9 code ICD10 code SNOMED code Start Date End Date S tatus Encounter for screening for other metabolic disorders Z13.228 Results No Results Allergies, adverse reactions, alerts No known allergies and adverse reactions Medications No administered medications reported Vital Signs No vital signs reported Social History No smoking Hx information available
== END 2025-02-13 09:43 | disposition home or self-care (01) ==
LOC: HO.PMC 09:18
PROVIDERS: PCP Hospitalist; Visit Provider Nurse Practitioner Family
DX: M54.50 Low back pain, unspecified (principal); M79.604 Pain in right leg; M54.51 Vertebrogenic low back pain; M51.369 Other intervertebral disc degeneration, lumbar region without mention of lumbar back pain or lower extremity pain; M51.26 Other intervertebral disc displacement, lumbar region
CPT/HCPCS: 99214; G2211

== ENCOUNTER → 2025-02-13 09:17 | Outpatient (BNVA) | payer OTHER, SELFPAY | PROVIDERS: PCP Hospitalist; Visit Provider Nurse Practitioner Family | DX: M54.51 Vertebrogenic low back pain (principal); M51.369 Other intervertebral disc degeneration, lumbar region without mention of lumbar back pain or lower extremity pain; M51.26 Other intervertebral disc displacement, lumbar region; M79.604 Pain in right leg | CPT/HCPCS: 99212 ==